=== PATIENT | female | born 1945 | race Caucasian/White ===

== ENCOUNTER → 2023-07-23 10:25 | Outpatient (REF) | payer OTHER, SELFPAY | LOC: RAD 10:25 | PROVIDERS: ATTENDING PHYSICIAN Registered Nurse | DX: M25.511 Pain in right shoulder (principal) | CPT/HCPCS: 73030 ==

== ENCOUNTER → 2023-08-15 13:42 | Outpatient (REF) | payer OTHER, SELFPAY | LOC: DHCBC HW 13:42 | PROVIDERS: ATTENDING PHYSICIAN Nurse Practitioner; FAMILY PHYSICIAN Registered Nurse | DX: I49.5 Sick sinus syndrome (principal); I48.0 Paroxysmal atrial fibrillation; Z95.0 Presence of cardiac pacemaker; I10 Essential (primary) hypertension; I73.9 Peripheral vascular disease, unspecified; E78.00 Pure hypercholesterolemia, unspecified; R06.02 Shortness of breath; R53.83 Other fatigue | CPT/HCPCS: 93306 ==

== ENCOUNTER 2023-09-12 18:59 | Emergency (ER) | payer OTHER, SELFPAY ==
[2023-09-12 19:06] VITALS: BP 171/111; BMI 28.3
[2023-09-12 19:26] LABS: Urine Albumin Negative (Neg - Trace); Urine Bilirubin 1+ (Negative); Urine Character Clear (Clear); Urine Color Yellow; Urine Glucose Negative (Negative); Urine Ketone Trace (Negative); Urine Leukocyte Negative (Negative); Urine Nitrite Negative (Negative); Urine Occult Blood Negative (Negative); Urine Urobilinogen 1+ (Neg - 1+)
[2023-09-12 19:28] LABS: % Basophils 0.3 % (0-2); % Eosinophils 0.1 % (0-6); % Immature Granulocytes 0.4 % (0-0.5); % Lymphocytes 19.8 % (20.5-51.1); % Neutrophils 71.4 % (42.2-75.2); Absolute Lymphocytes 1.5 10^3/uL (1.2-3.4); Absolute Monocytes 0.6 10^3/uL (0.1-0.6); Absolute Neutrophils 5.5 10^3/uL (1.4-6.5); Hematocrit 43.7 % (37.0-47.0); Hemoglobin 15.2 g/dL (12.0-16.0); Mean Corp Hgb Conc. 34.8 g/dL (33.0-37.0); Mean Corpuscular Hgb 32.3 pg (27.0-31.0); Mean Corpuscular Volume 92.8 fL (81.0-99.0); Mean Platelet Volume 10.9 fL (7.4-10.4); Nucleated Red Blood Cells % 0 %; Platelet Count 123 10^3/uL (130-400); Red Blood Cell Count 4.71 10^6/uL (4.20-5.40); White Blood Cell Count 7.7 10^3/uL (4.8-10.8)
[2023-09-12 19:49] LABS: ALT (SGPT) 16 U/L (0-35); AST (SGOT) 32 U/L (14-36); Albumin 4.5 g/dl (3.5-5.0); Alkaline Phosphatase 98 U/L (38-126); Blood Urea Nitrogen 15 mg/dl (7-17); Calcium 9.2 mg/dl (8.4-10.2); Carbon Dioxide 35 mmol/L (22-30); Chloride 98 mmol/L (98-107); Estimated Creatinine Clearance 64 ml/min; Glucose 115 mg/dl (70-99); Lipase 83 U/L (23-300); Potassium 4.4 mmol/L (3.5-5.1); Sodium 133 mmol/L (135-145); Total Bilirubin 0.6 mg/dl (0.2-1.3); Total Protein 7.2 g/dl (6.3-8.2); eGFR > 60.00
--- NOTE | 2023-09-12 21:17 | ED.GENMED ---
History of Present Illness
General
Chief Complaint: Abdominal Pain
Source: patient and family
Time Seen by Provider: 09/12/23 21:04
Travel History
Have you had any contact with someone who has COVID-19?: No
Do you have any symptoms of coronavirus? Fever > 100 degrees, chills, cough, shortness of breath, sore throat, loss of taste or smell, muscle aches, or headache?: No
History of Present Illness
History of Present Illness:
This patient is a 77-year-old female presents emergency department with complaints of generalized malaise, nausea, and anorexia with a 7 pound weight last over the past month. She denies fever chills, vomiting, chest pain, dyspnea, back pain. She
has a chronic cough. She denies black stool or bleeding, urinary symptoms, vaginal very discharge. Her bowel movements are normal. She does note lower abdominal pain, sometimes worse on the right side, particular after having a bowel movement.
She noted the pain earlier today although it is now resolved. Patient was seen by her primary care doctor earlier this week and referred for outpatient testing which she has not yet been able to get.
Past History
Past History
ED Past Medical History: Arrthythmia (Atrial fibrillation), Asthma, COPD, HTN, Hypercholesterolemia, Other (Ulcers) and Other (,stomach ulcers, hiatal hernia, colon polyps, frequent urination, kidney stones, arthritis, cataracts. Left femoral artery
occlusion)
ED Past Surgical History: Appendectomy, Cardiac (Pacemaker), Gynecological (Hysterectomy) and Other (Stents left leg, inguinal hernia repair)
Social History
Tobacco: Smoker
Alcohol: Occasional
Drug: None
Personal:
Living: alone
Employment: Employed
Phy Exam
Physical Exam
Physical Exam:
GENERAL: Alert , in no apparent distress
EYE: pupils equal and reactive
NECK: Supple, no significant adenopathy.
ENT: o/p clr, mmm.
CARDIAC: Regular rate and rhythm .
LUNGS: Equal breath sounds bilaterally, no acute respiratory distress, scattered wheezing noted, no rales or rhonchi, speaks in full sentences easily
ABDOMEN: Soft, diffuse abdominal tenderness, no r/g, no cvat
NEUROLOGICAL: Alert and oriented, no focal neuro deficits
SKIN: Warm and dry, skin intact.
MUSCULOSKELETAL: No edema, well perfused.
PSYCH: Normal and appropriate interaction.
Course
Orders/Labs/Results
Orders:
Orders
09/12/23 19:21
Complete Blood Count/With Diff Urgent
Comprehensive Metabolic Panel Urgent
Lipase Urgent
Urinalysis Reflex To Culture Urgent
Date Specimen was Collected: 09/12/23
Time Specimen was Collected: 19:08
09/12/23 22:30
Iohexol [Omnipaque] See Protocol PO NOW STA
09/13/23 00:55
CT Abd/pel W Iv And Oral Contr Urgent
Reason For Exam: abd pain, n
Abnormal Lab Results
09/12/23
19:21
MCH 32.3 H pg
(27.0-31.0)
Plt Count 123 L 10^3/uL
(130-400)
MPV 10.9 H fL
(7.4-10.4)
Lymphocytes % 19.8 L %
(20.5-51.1)
Sodium 133 L mmol/L
(135-145)
Carbon Dioxide 35 H mmol/L
(22-30)
Glucose 115 H mg/dl
(70-99)
Urine Ketones Trace A
(Negative)
Urine Bilirubin 1+ A
(Negative)
09/12/23 19:21
09/12/23 19:21
Vital Signs
Initial and Last Documented VS:
Initial Vital Signs
Temp Pulse Resp BP Pulse Ox
98 F 88 16 171/111 97
09/12/23 19:06 09/12/23 19:06 09/12/23 19:06 09/12/23 19:06 09/12/23 19:06
Last Documented Vital Signs
Temp Pulse Resp BP Pulse Ox
98 F 71 16 160/74 93
09/13/23 00:08 09/13/23 00:08 09/13/23 00:08 09/13/23 00:08 09/13/23 00:08
*Critical Care Note
Total Time (30-74mins, 75-104mins- exclusive of procedures): Not Applicable
Update Note
Update Note:
Patient presents to the Emergency Department with __abdominal pain, anorexia, malaise
Number and Complexity of Problems Addressed at the Encounter
� Chronic conditions affecting care:
� Acute Exacerbation and/or Progression of Chronic Illness:
� Differential Diagnosis includes: But not limited to cholelithiasis, cholecystitis, intra-abdominal carcinoma, bowel obstruction, etc. etc.
Amount and/or Complexity of Data to be Reviewed and Analyzed
� I performed an independent evaluation of and my interpretation is:
EKG:
CT:vision read...no acute process identified, nl gb, atropic R kidney, no obstruction, no ff or fa
Xrays:
Laboratory Studies:
Other:
� Review of other/old records reveals: Discharge summary noted from recent inguinal hernia repair
� Clinical information was obtained by an independent historian: Daughter who is at bedside
� Prescriptions/Medications Considered but not given:
� Further testing considered but not performed:
Risk of Complications and/or Morbidity or Mortality of Patient Management
� Social determinants of health affecting care:
� Discussion with other providers (PCP, Hospitalists, Consultants, etc):
� Escalation of care including admission/observation vs risk of discharge considered:Pt mostly concerned re:possilibilty of gb dz, overall exam/findings unremarkable for this and otherwise serious etiology and pt comfortable,
tolerated po without difficulty, etc. WIll d/c with instructions to continue outpt eval and reasons to rted.
ED Attending Note
-
Portions of this chart may have been created with voice recognition software.� Occasional wrong word or��sound alike� substitutions may have occurred due to the inherent limitations of voice recognition software.
Discharge Plan
Departure
Patient Disposition: Home (Routine Discharge)
Date of Disposition: 09/13/23
Time of Disposition: 02:26
Patient with high blood pressure during this ER visit?: Yes
Condition: Good
Discharge Problem:
Abdominal pain
Instructions: Abdominal Pain, BLOOD PRESSURE
Prescriptions:
No Action
Trelegy Ellipta 1 EACH blister with device
1 puff IH DAILY
azithromycin 250 MG tablet
250 mg PO DAILY
amlodipine 2.5 MG tablet
2.5 mg PO DAILY
aspirin 81 MG tablet,chewable
81 mg PO DAILY Qty: 30 0RF
acetaminophen [Tylenol Extra Strength] 500 MG tablet
1,500 mg PO BID
Patient Comments:
pt took 1000 mg po at 06:00 am today, 10/10/22
Xarelto 20 MG tablet
20 mg PO QPM Qty: 0 0RF
atorvastatin 80 mg Tablet
80 mg PO QPM
tramadol 50 mg Tablet
50 mg PO PRN PRN (Reason: pain)
metoprolol succinate 25 mg Tablet Extended Release 24 Hr
25 mg PO DAILY
albuterol sulfate 90 mcg/actuation Hfa Aerosol Inhaler
2 puff INHALATION PRN PRN (Reason: SOB, Wheezes)
trospium 20 mg Tablet
20 mg PO DAILY
acetaminophen [acetaminophen] 325 mg tablet
650 mg PO Q6HPRN PRN (Reason: mild pain) Qty: 14 0RF
ibuprofen 600 mg tablet
600 mg PO Q6H PRN (Reason: pain) Qty: 14 0RF
Referrals:
Daljit Mendieta CRNP [Family Provider] - Follow up in 2-3 days
Activity Restrictions/Additional Instructions:
IF YOU DEVELOP INCREASING NEW OR WORSENING PAIN, FEVER, VOMITING, BLEEDING, CHEST PAIN, SHORTNESS OF BREATH, OR OTHER WORRISOME SIGNS, PLEASE RETURN TO THE ER IMMEDIATELY.
Interventions
Interventions:
*Risk Screen - Suicide Last Done: 09/12/23 19:06
*Neglect/Abuse Screening Last Done: 09/12/23 19:06
ED- Fall Risk Assessment Last Done: 09/12/23 21:35
*ED COVID-19 Vaccine History Last Done: 09/12/23 19:06
OY-Pxvhvr-Inyrdzgxrg Assessment Last Done: 09/12/23 21:35
Discharge Date and Time
Print Language: BRUNEIAN
[2023-09-12 21:44] VITALS: BP 159/90
[2023-09-12 22:00] VITALS: BP 161/74
[2023-09-12] MEDS: OMNIPAQUE 50 ML PO (22:57)
[2023-09-12 23:00] VITALS: BP 175/85
[2023-09-13 00:08] VITALS: BP 160/74
[2023-09-13 02:49] VITALS: BP 151/75
== END 2023-09-13 02:52 | disposition home or self-care (01) ==
LOC: EMR 18:59
PROVIDERS: Emergency Medicine; EMERGENCY PHYSICIAN Emergency Medicine; FAMILY PHYSICIAN Registered Nurse
DX: R10.9 Unspecified abdominal pain (principal); I48.91 Unspecified atrial fibrillation; J44.89 Other specified chronic obstructive pulmonary disease; I10 Essential (primary) hypertension; E78.00 Pure hypercholesterolemia, unspecified; F17.200 Nicotine dependence, unspecified, uncomplicated; Z87.19 Personal history of other diseases of the digestive system; Z87.442 Personal history of urinary calculi; Z90.49 Acquired absence of other specified parts of digestive tract; Z90.710 Acquired absence of both cervix and uterus; Z95.0 Presence of cardiac pacemaker; Z95.5 Presence of coronary angioplasty implant and graft
CPT/HCPCS: 99284; 74177; 80053; 81003; 83690; 85025; Q9967

== ENCOUNTER → 2023-09-19 08:40 | Outpatient (REF) | payer OTHER, SELFPAY ==
[2023-09-19 09:59] LABS: % Basophils 0.4 % (0-2); % Eosinophils 0.4 % (0-6); % Immature Granulocytes 0.2 % (0-0.5); % Lymphocytes 22.7 % (20.5-51.1); % Neutrophils 66.3 % (42.2-75.2); Absolute Lymphocytes 1.3 10^3/uL (1.2-3.4); Absolute Monocytes 0.6 10^3/uL (0.1-0.6); Absolute Neutrophils 3.7 10^3/uL (1.4-6.5); Hematocrit 45.1 % (37.0-47.0); Hemoglobin 14.5 g/dL (12.0-16.0); Mean Corp Hgb Conc. 32.2 g/dL (33.0-37.0); Mean Corpuscular Hgb 31.3 pg (27.0-31.0); Mean Corpuscular Volume 97.2 fL (81.0-99.0); Nucleated Red Blood Cells % 0 %; Platelet Count 124 10^3/uL (130-400); Red Blood Cell Count 4.64 10^6/uL (4.20-5.40); Red Cell Dist. Width 14.3 % (11.5-14.5); White Blood Cell Count 5.6 10^3/uL (4.8-10.8)
[2023-09-19 12:44] LABS: ALT (SGPT) 14 U/L (0-35); AST (SGOT) 31 U/L (14-36); Albumin 3.9 g/dl (3.5-5.0); Alkaline Phosphatase 96 U/L (38-126); Blood Urea Nitrogen 18 mg/dl (7-17); Calcium 9.4 mg/dl (8.4-10.2); Carbon Dioxide 31 mmol/L (22-30); Chloride 101 mmol/L (98-107); Glucose 83 mg/dl (70-99); HDL Cholesterol 47 mg/dl; LDL Cholesterol, Calculated 58 mg/dl; Potassium 4.4 mmol/L (3.5-5.1); Sodium 137 mmol/L (135-145); Total Bilirubin 0.6 mg/dl (0.2-1.3); Total Cholesterol 121 mg/dl (50-199); Total Protein 6.4 g/dl (6.3-8.2); Triglyceride 84 mg/dl (10-149); Very Low Density Lipoprotein 16 mg/dl (0-30); eGFR > 60.00
[2023-09-19 13:46] LABS: Vitamin B12 261 pg/ml (239-931)
[2023-09-19 13:55] LABS: Free T4 1.13 ng/dl (0.78-2.19)
== END ==
LOC: REG 08:40
PROVIDERS: ATTENDING PHYSICIAN Registered Nurse
DX: R41.89 Other symptoms and signs involving cognitive functions and awareness (principal); I25.10 Atherosclerotic heart disease of native coronary artery without angina pectoris; I73.9 Peripheral vascular disease, unspecified; I10 Essential (primary) hypertension; J44.9 Chronic obstructive pulmonary disease, unspecified; E78.2 Mixed hyperlipidemia
CPT/HCPCS: 36415; 80053; 80061; 82607; 84439; 84443; 85025

== ENCOUNTER → 2023-11-20 09:37 | Outpatient (REF) | payer OTHER, SELFPAY ==
[2023-11-20 11:53] LABS: TSH Reflex To Free T4 1.09 uIU/ml (0.47-4.68)
== END ==
LOC: REG 09:37
PROVIDERS: ATTENDING PHYSICIAN Registered Nurse
DX: E03.9 Hypothyroidism, unspecified (principal)
CPT/HCPCS: 36415; 84443

== ENCOUNTER 2024-01-25 17:17 | Inpatient (IN) | payer OTHER, SELFPAY ==
[2024-01-25] VITALS (9 sets, daily range): BP systolic 128–174; BP diastolic 63–116; BMI 25.9; BMI 24.6
--- NOTE | 2024-01-25 12:38 | ED.GENMED ---
History of Present Illness
General
Chief Complaint: Abdominal Pain
Source: patient
Exam Limitations: none
Time Seen by Provider: 01/25/24 12:09
Nursing documentation reviewed up to this point in time: agreed with
History of Present Illness
History of Present Illness:
Patient is a 78-year-old female who presents to the ER for abdominal pain. She reports she has had this pain off and on for months. In fact some reports she was here in September for same pain. She did see her family doctor for that was scheduled for
testing but did not have testing done. She reports pain started this morning. It is the same pain as prior episodes. She reports the pain in the epigastric area does not radiate. She denies any nausea vomiting. She does not have reflux and does
not feel like reflux or GERD. She denies any urinary frequency urgency or dysuria.
She denies any chest pain shortness of breath. She has never had a colonoscopy. She does report weight loss but she is not able to tell me how much weight over how long she has lost weight. pt does smoke. no history of alcohol use .
Past History
Past History
ED Past Medical History: Arrthythmia (Atrial fibrillation), Asthma, COPD, HTN, Hypercholesterolemia, Other (Ulcers) and Other (,stomach ulcers, hiatal hernia, colon polyps, frequent urination, kidney stones, arthritis, cataracts. Left femoral artery
occlusion)
ED Past Surgical History: Appendectomy, Cardiac (Pacemaker), Gynecological (Hysterectomy) and Other (Stents left leg, inguinal hernia repair)
Social History
Tobacco: Smoker
Alcohol: Occasional
Drug: None
Personal:
Living: alone
Employment: Employed
Review of Systems
Review of Systems
Allergies reviewed?: Yes
All Other Systems: ROS reviewed and negative except as documented in HPI and ROS
Constitutional: Reports no symptoms
Respiratory: Reports no symptoms
Cardiac: Reports no symptoms
ABD/GI: Reports abdominal pain; Denies nausea, vomiting or diarrhea
: Reports no symptoms
Musculoskeletal: Reports no symptoms
Skin: Reports no symptoms
Neurological: Reports no symptoms
Psychiatric: Reports no symptoms
Phy Exam
General Physical Exam
General Presentation: no apparent distress
General age: appears stated age
General Skin: warm and dry
General Habitus: normal
General Mental: alert
General Hydration: appears well hydrated
Cardiovascular Exam
Cardiovascular Exam: regular rate/rhythm, no murmur and normal peripheral pulses
Pulmonary Exam
Pulmonary Exam: lungs clear and no respiratory distress
Gastrointestinal Exam
Gastrointestinal Exam: soft and other (epigastric tenderness )
Neurological Exam
Neurological Exam: alert and oriented x3
Musculoskeletal Exam
Musculoskeletal Exam: full ROM
Skin Exam
Skin Exam: normal color and warm/dry
Psychiatric Exam
Psychiatric Exam: normal mood/affect
Course
Orders/Labs/Results
Orders:
Orders
01/25/24 12:43
IV Insert/Care/Rem.- Treatment PRN
01/25/24 13:13
CT Angio Abd/Pelvis w/wo IV [CT Abd/pelvis Angio W/wo Iv] Urgent
Comment:
Reason For Exam: upper abd pain known aneurysm
01/25/24 13:40
Complete Blood Count/With Diff Urgent
Comprehensive Metabolic Panel Urgent
Lipase Urgent
Urinalysis Reflex To Culture Urgent
Date Specimen was Collected: 01/25/24
Time Specimen was Collected: 13:05
Abnormal Lab Results
01/25/24
13:40
MCH 32.3 H pg
(27.0-31.0)
Plt Count 114 L 10^3/uL
(130-400)
MPV 10.8 H fL
(7.4-10.4)
Monocytes % 10.0 H %
(1.7-9.3)
Chloride 97 L mmol/L
(98-107)
Carbon Dioxide 39 H mmol/L
(22-30)
Lipase 906 H U/L
(23-300)
01/25/24 13:40
01/25/24 13:40
Vital Signs
Initial and Last Documented VS:
Initial Vital Signs
Temp Pulse Resp BP Pulse Ox
97.7 F 96 16 169/116 92
01/25/24 11:08 01/25/24 11:08 01/25/24 11:08 01/25/24 11:08 01/25/24 11:08
Last Documented Vital Signs
Temp Pulse Resp BP Pulse Ox
98.2 F 91 18 143/72 87
01/25/24 13:47 01/25/24 14:30 01/25/24 14:30 01/25/24 14:00 01/25/24 15:17
MDM/Problems Addressed
Differential Diagnosis Includes:
Not limited to peptic ulcer disease, biliary colic, pancreatitis
MDM/Problems Addressed:
Patient is a 78-year-old female who presents for epigastric pain. She has had this pain off and on since September. She was seen here in the ER in September and at that time had a CAT scan which showed no acute abnormalities however there was again seen a
fusiform abdominal aortic aneurysm measuring 3.6 cm(this was 3.5 cm 6 of 2021)
She has since seen her family doctor and had additional imaging ordered but did not get this done yet including ultrasound of the abdomen.
With persistent abdominal pain and history of aneurysm CAT scan repeated. Patient is mildly tender on epigastric exam. CAT scan does show again fusiform infrarenal abdominal aortic aneurysm 3.6 cm without evidence for enlargement; severe greater
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
Labs reviewed patient's white count hemoglobin stable; normal renal function lipase however elevated 906 which is increased from previous ED visit in September . with continued pain elevated lipase will adm
Chronic conditions affecting care:
+ smoker
*Radiology
Radiology exam reviewed: radiology read reviewed
*Critical Care Note
Total Time (30-74mins, 75-104mins- exclusive of procedures): Not Applicable
Data Reviewed
Review of Other/Old Records Reveals: Radiology Studies and Other (Previous imaging previous ED record)
ED Attending Note
-
Portions of this chart may have been created with voice recognition software.� Occasional wrong word or��sound alike� substitutions may have occurred due to the inherent limitations of voice recognition software.
Discharge Plan
Departure
Patient Disposition: Admit
Date of Disposition: 01/25/24
Time of Disposition: 16:16
Admit to: Med/Surg
Admit to doctor: hospitalist
Presentation/result/management discussed w/ accepting MD/DO: Hospitalist
Patient with high blood pressure during this ER visit?: No
Condition: Fair
Covid-19: Not Applicable
Discharge Problem:
Acute epigastric pain, Elevated lipase
Prescriptions:
No Action
Trelegy Ellipta 1 EACH blister with device
1 puff IH DAILY
azithromycin 250 MG tablet
250 mg PO DAILY
amlodipine 2.5 MG tablet
2.5 mg PO DAILY
aspirin 81 MG tablet,chewable
81 mg PO DAILY Qty: 30 0RF
acetaminophen [Tylenol Extra Strength] 500 MG tablet
1,500 mg PO BID
Patient Comments:
pt took 1000 mg po at 06:00 am today, 10/10/22
Xarelto 20 MG tablet
20 mg PO QPM Qty: 0 0RF
atorvastatin 80 mg Tablet
80 mg PO QPM
tramadol 50 mg Tablet
50 mg PO PRN PRN (Reason: pain)
metoprolol succinate 25 mg Tablet Extended Release 24 Hr
25 mg PO DAILY
albuterol sulfate 90 mcg/actuation Hfa Aerosol Inhaler
2 puff INHALATION PRN PRN (Reason: SOB, Wheezes)
trospium 20 mg Tablet
20 mg PO DAILY
acetaminophen [acetaminophen] 325 mg tablet
650 mg PO Q6HPRN PRN (Reason: mild pain) Qty: 14 0RF
ibuprofen 600 mg tablet
600 mg PO Q6H PRN (Reason: pain) Qty: 14 0RF
Referrals:
Daljit Mendieta CRNP [Family Provider] -
Interventions
Interventions:
*Risk Screen - Suicide Last Done: 01/25/24 11:08
*General Assessment Last Done: 01/25/24 11:08
*Neglect/Abuse Screening Last Done: 01/25/24 11:56
ED- Fall Risk Assessment Last Done: 01/25/24 11:56
*ED COVID-19 Vaccine History Last Done: 01/25/24 11:08
JZ-Cdquyh-Uqkezvuxwr Assessment Last Done: 01/25/24 11:57
Discharge Date and Time
Print Language: ROMANSH
[2024-01-25 14:00] LABS: Urine Albumin Negative (Neg - Trace); Urine Bilirubin Negative (Negative); Urine Character Clear (Clear); Urine Color Yellow; Urine Glucose Negative (Negative); Urine Ketone Negative (Negative); Urine Leukocyte Negative (Negative); Urine Nitrite Negative (Negative); Urine Occult Blood Negative (Negative); Urine Urobilinogen Negative (Neg - 1+)
[2024-01-25 14:12] LABS: ALT (SGPT) 20 U/L (0-35); AST (SGOT) 29 U/L (14-36); Albumin 3.8 g/dl (3.5-5.0); Alkaline Phosphatase 84 U/L (38-126); Blood Urea Nitrogen 13 mg/dl (7-17); Calcium 9.3 mg/dl (8.4-10.2); Carbon Dioxide 39 mmol/L (22-30); Chloride 97 mmol/L (98-107); Estimated Creatinine Clearance 57 ml/min; Glucose 99 mg/dl (70-99); Lipase 906 U/L (23-300); Potassium 4.4 mmol/L (3.5-5.1); Sodium 139 mmol/L (135-145); Total Bilirubin 0.4 mg/dl (0.2-1.3); Total Protein 6.3 g/dl (6.3-8.2); eGFR > 60.00
[2024-01-25 14:19] LABS: % Basophils 0.3 % (0-2); % Eosinophils 0.3 % (0-6); % Immature Granulocytes 0.3 % (0-0.5); % Neutrophils 67.1 % (42.2-75.2); Absolute Lymphocytes 1.3 10^3/uL (1.2-3.4); Absolute Monocytes 0.6 10^3/uL (0.1-0.6); Hematocrit 41.9 % (37.0-47.0); Mean Corp Hgb Conc. 33.4 g/dL (33.0-37.0); Mean Corpuscular Hgb 32.3 pg (27.0-31.0); Mean Corpuscular Volume 96.8 fL (81.0-99.0); Mean Platelet Volume 10.8 fL (7.4-10.4); Nucleated Red Blood Cells % 0 %; Platelet Count 114 10^3/uL (130-400); Red Blood Cell Count 4.33 10^6/uL (4.20-5.40); Red Cell Dist. Width 12.9 % (11.5-14.5); White Blood Cell Count 5.9 10^3/uL (4.8-10.8)
--- NOTE | 2024-01-25 16:58 | HPS.HSE ---
Family Physician
-
Family Physician: PHUONG Olivo
Chief Complaint
-
abdominal pain flare
History of Present Illness
78F Current smoker HX Est ASCVD ( PAD with LLEx srents, stable 3.6 cm infrarenal abdominal aortic aneurysm, HLD, HTN, chr pain syndrome, gastric ulcer seen at ER for abdominal pain.
- intermittent pain for months of chrnicity
- PCP request abdominal imaging plus US abdomen but did not get this done yet
- presented to ER with same pain at epigastrium. No radiation
- denied N/V
- Not similar to reflux pain
- denied urinary frequency urgency or dysuria.
- denies any chest pain shortness of breath.
- uncertain about any wt loss
- Denied ETOH use disorder
Medical History
Past Medical History
Past Medical History: Reports Arrhythmia (AFib on Xarelto ), COPD, GERD, HTN and Hypercholesterolemia; Denies NIDDM
Additional Past Medical History:
HX Est ASCVD ( PAD with LLEx stents, stable 3.6 cm infrarenal abdominal aortic aneurysm, HLD, HTN, chr pain syndrome, gastric ulcer, bradycardia , syncope, PPM implant,Left femoral artery occlusion)
Past Surgical History: Reports Appendectomy, Cardiac (PPM ) and Gynocological (hysterectomy, Stents left leg, inguinal hernia repair))
Social History
Tobacco: Smoker
Alcohol: Occasional
Drug: None
Personal:
Living: Alone
Family History
Family History: Not pertinent
Allergies / Home Medications
Allergies reflects when Allergies were last updated in [facility].
Home Medications with original date entered in [facility]
Allergy/Medication List:
Allergies
Allergy/AdvReac Type Severity Reaction Status Date / Time
simvastatin Allergy Rash Verified 01/25/24 11:13
warfarin [From Coumadin] Allergy Unknown Verified 01/25/24 11:13
Home Medications
amlodipine 2.5 mg tablet 5 mg PO DAILY 01/05/19
azithromycin 250 mg tablet 250 mg PO DAILY 01/05/19
acetaminophen 500 mg tablet (Tylenol Extra Strength) 1,500 mg PO BID 04/17/20
rivaroxaban 20 mg tablet (Xarelto) 20 mg PO QPM ##0 04/17/20
albuterol sulfate 90 mcg/actuation aerosol inhaler 2 puff inhalation R Q6HPRN PRN SOB, Wheezes 09/23/22
atorvastatin 80 mg tablet 80 mg PO QPM 09/23/22
metoprolol succinate 25 mg tablet,extended release 24 hr 25 mg PO DAILY 09/23/22
tramadol 50 mg tablet 50 mg PO BIDPRN PRN moderate pain 09/23/22
fluticasone fur. 100 mcg-umeclid 62.5 mcg-vilant 25 mcg inhalat.powder (Trelegy Ellipta) 1 inh inhalation R DAILY 01/25/24
levothyroxine 75 mcg tablet (Synthroid) 75 mcg PO DAILY 01/25/24
Review of Systems
-
Constitutional: Reports No Symptoms
EENT: Reports No Symptoms
Respiratory: Reports No Symptoms
Cardiac: Reports No Symptoms
Abdomen/GI: Reports See HPI
: Reports No Symptoms
Musculoskeletal: Reports No Symptoms
Skin: Reports No Symptoms
Neurological: Reports No Symptoms
Endocrine: Reports No Symptoms
Hematologic/Lymphatic: Reports No Symptoms
Psych: Reports No Symptoms
Physical Exam
Vital Signs
Vital Signs
Temp Pulse Resp BP Pulse Ox
98.2 F 100 24 143/72 97
01/25/24 16:22 01/25/24 16:00 01/25/24 16:00 01/25/24 14:00 01/25/24 16:22
Physical Exam
General: Well Developed, Well Nourished and No Apparent Distress
HEENT: NormoCephalic, Moist mucous membranes and Atraumatic
Respiratory: Clear
Cardiac: S1/S2 and Regular Rhythm; No Murmur or Rub
GI: Soft, Non Tender, Non Distended and Normal Bowel Sounds; No Organomegaly
Rectal: Deferred by Provider
Musculoskeletal: No Clubbing, No Cyanosis and No Edema
Skin: No Rash
Neuro: Nonfocal/grossly intact
Laboratory Results
-
01/25/24 13:40
01/25/24 13:40
Laboratory Results
Total Bilirubin 0.4 mg/dl (0.2-1.3) 01/25/24 13:40
AST 29 U/L (14-36) 01/25/24 13:40
ALT 20 U/L (0-35) 01/25/24 13:40
Alkaline Phosphatase 84 U/L (38-126) 01/25/24 13:40
Lipase 906 U/L (23-300) H 01/25/24 13:40
Data Reviewed
-
Diagnostic Radiology: Report Reviewed by me
Lab Data: Labs Reviewed by me
Old Records: Reviewed
Impression/Plan
-
Vital Signs
Temp Pulse Resp BP Pulse Ox
98.2 F 100 24 143/72 97
01/25/24 16:22 01/25/24 16:00 01/25/24 16:00 01/25/24 14:00 01/25/24 16:22
Laboratory Tests
09/19/23 01/25/24
09:11 13:40
WBC 5.9
Hgb 14.0
Plt Count 124 L 114 L
Chloride 97 L
Carbon Dioxide 39 H
BUN 13
Creatinine 0.7
eGFR > 60.00
Lipase [address]/pelvis Angio W/wo Iv
1. Fusiform infrarenal abdominal aortic aneurysm (3.6 cm AP dimension) without evidence for interval enlargement since 09/13/2023.
2. 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
3. 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
4. Moderate to severe right renal atrophy with suggestion of chronic ischemia.
5. Severe diverticulosis in the sigmoid colon.
6. Severe pelvic floor dysfunction with a rectocele.
7. Small hiatal hernia.
8. Previous AARON-BSO and appendectomy.
9. Severe multilevel discogenic degenerative disease in the lumbar spine.
08/15/23 ECHO
LVEF 55-60%.
Aortic sclerosis without stenosis.
No significant change since the prior study of 2019.
Last hospitalist admission:
DATE OF ADMISSION: 01/05/2019 - DATE OF DISCHARGE: 01/06/2019
1. Paroxysmal atrial fibrillation, started on Xarelto on this admission.
2. Abdominal aortic aneurysm. Continue outpatient monitoring.
ASSESSMENT & PLAN
Acute on chr intermittent abdominal pain of uncertain etiology
DDX:
- concerning for abdominal angina / chr ischemic bowel ?
- unlikely pain is from Fusiform infrarenal AAA (3.6 cm AP dimension) NO evidence for interval enlargement since 09/13/2023.
- Elevated lipase but no clear evidience of acute pancreatitis
- HX
- Clear diet and ADAT
- IV NS
- PRN Narcotic analgesia
- check Lactate , trend lipase
- Consult: GI , vascular
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
Fusiform infrarenal AAA (3.6 cm AP dimension
Known HX PAD with Samuel stent
Current smoker
HLD
- cont Statin
Hypercholesterolemia.-
- on Lipitor 80mg daily
Essential HTN
- cont. Amlodipine and Metoprolol succinate
HX Prx AF
- on Xarelto and Metoprolol succinate
HX Pacemaker secondary to bradycardia/syncope
HX COPD.
- cont TECHNICAL SUPPORT INTERN Zithromax 250 mg daily for chronic maintenance.
Nicotine abuse.
- Smoking cessation was advised
Chr condition:
HX Asthma, p.r.n. DuoNeb.
HX Gastric ulcers, p.o. Protonix 40 mg daily.
Hiatal hernia history.
Colon polyp history.
Renal calculi history with a removal of calculi in 2001.
DVT Px: Xarelto
DNR per patient in the presence of family at bed side
IP TLM
[2024-01-25 17:30] LABS: Lactic Acid 0.6 mmol/L (0.7-2.0)
[2024-01-25] MEDS: NSS 1000 IV (18:19)
[2024-01-25] MEDS: NORVASC 5 MG PO (18:42)
[2024-01-25] MEDS: LIPITOR 80 MG PO (18:42)
[2024-01-25] MEDS: XARELTO 20 MG PO (18:42)
--- NOTE | 2024-01-25 18:47 | PTCARENOTE ---
pt admitted to [facility] rm [id number] at 1815. pt assisted to bed, gait steady. admission database completed, telemetry placed and reading ST 90's, BP 178/110 rechecked manual BP 160/90. Dr Garcia notified and new orders noted. pt oriented to room, call
susanna, plan of care with verbalized understanding. family at bedside.
[2024-01-25] MEDS: SYMBICORT 80/4.5 MCG INHALER 2 PUFF INH (20:06)
[2024-01-25] MEDS: TYLENOL 1000 MG PO (21:39)
[2024-01-26] VITALS (8 sets, daily range): BP systolic 20–152; BP diastolic 56–88; BMI 24.8
[2024-01-26] MEDS: SYNTHROID 75 MCG PO (05:02)
[2024-01-26] MEDS: NSS 1000 IV (06:18)
[2024-01-26 06:58] LABS: Hematocrit 36.3 % (37.0-47.0); Mean Corp Hgb Conc. 33.1 g/dL (33.0-37.0); Mean Corpuscular Hgb 31.1 pg (27.0-31.0); Mean Platelet Volume 11.2 fL (7.4-10.4); Platelet Count 105 10^3/uL (130-400); Red Blood Cell Count 3.86 10^6/uL (4.20-5.40); Red Cell Dist. Width 13.2 % (11.5-14.5); White Blood Cell Count 5.3 10^3/uL (4.8-10.8)
--- NOTE | 2024-01-26 07:00 | CON.GI ---
Addendum entered and electronically signed by Rene Berry DO 01/26/24 09:08:
I saw and examined the patient.
The INTAKE ASSESSOR's note was reviewed and I agree with the note.
Comment: Ms Sharma is a 78 y.o female with an extensive past medical history including HTN, HLD, A Fib (on xarelto), COPD, significant PAD (prior stents with prior femoral artery occlusion), tobacco use and reported gastric ulcers (? - details
unclear regarding this) who presented to the ED with epigastric pain over the past six months. Reports intermittent, dull but fairly constant epigastric pain without any relation to meals and/or fasting over the past several months. Waxes and wanes
without any provoking factors or other significant GI symptoms- no dysphagia/odynophagia, heartburn/reflux, globus, nausea/vomiting, radiating symptoms, changes in bowel habits, constipation/diarrhea or bloody stools. Does endorse significant
unintentional weight loss of about 30 pounds since last year. Denies poor p.o intake. Otherwise, no NSAIDs or significant alcohol use. She has never had a prior EGD or colonoscopy. Prior CT Abd/pelvis 09/2023 for abdominal pain was also unremarkable
at that time. Labs grossly unrevealing except for profoundly elevate lipase 900s with normal LFTs. Etiology suspicious for possible PUD (given reported hx of gastric ulcers on prior imaging ?- although I see no records of this) versus pancreatic
process given elevated lipase 900s however CT reportedly normal appearing pancreas. Has multiple risk factors for chronic mesenteric ischemia given her ongoing smoking and significant atherosclerotic disease of her vasculature see on CT, however her
symptomatology argues against. Given her epigastric pain and significant weight loss she would benefit from EGD this admission along with Abdominal US to better visualize her GB and pancreas given her significantly elevated lipase but does not meet
criteria for pancreatitis.
Recommendations:
- Keep NPO pending procedure
- Empiric IV PPI 40 mg BiD
- Plan for EGD today, 01/26/2024, for further evaluation of pain and weight loss
- Start Miralax 17 gm BiD and senna qhs if constipation contributing
- Check Abdominal US for completion given elevated lipase and unremarkable CT. Will consider MRI/MRCP WWO contrast this admission pending results of US
- Would benefit from an eventual colonoscopy as well given her profound weight loss, however less likely to be causing abdominal pain. Will consider inpatient versus outpatient colonoscopy
- Hold Xarelto (last dose on 01/24/2024)
- Avoidance of all NSAIDs
- Rest of care as per primary team
Thank you for allowing me to participate in the care of this patient. Please do not hesitate to call for any further questions. GI team will continue to follow while inpatient.
Original Note:
Consultation
-
Date/Time Consultation Requested: 01/25/24 181
Date/Time Consultation Performed: 01/26/24 0800
Requesting Provider: Yoni Garcia MD
Performing Provider: PHUONG Mejia, Rene Berry MD
Reason for Consultation: abdominal pain
Medical History
Chief Complaint / HPI
History of Present Illness:
Pt is a 78yo with hx COPD, PAD with prior LE stents with prior femoral artery occlusion, afib on Xarelto, tobacco abuse, AAA, HTN, hyperlipidemia, gastric ulcers, pacer, chronic pain with onset of abdominal pain. Pt reports pain on and off for
months. After admission noted with stable hbg 14, platelets 114, normal LFT's but lipase 906. CTA on admission with stable AAA 3.6 cm, severe stenosis of both renal arteries, chronic iliac art occlusion, renal atrophy with chronic ischemia,
diverticulosis, pelvic floor disfunction with rectoceles, small HH, AARON, BSO and DDD and pancreas appears normal.
In reviewing with patient noted with abdominal pain for a few months. Pain with come and go without pattern. She has had wt loss per chart about 30 lbs since 2022. She denies dysphagia, GERD, nausea, vomiting, diarrhea, constipation or
rectal bleeding. No hx EGD or colonoscopy in past. Denies NSAID use.
Past Medical History
Past Medical History: Arrhythmias (afib on Xarelto), COPD, GERD, HTN, Hypercholesterolemia and Other (PAD wtih LLe stent, 3.6 cm infrarenal AAA, chronic pain, gastric ulcer, bradycardia, fem artery occlusion, tobacco abuse, gastric ulcer )
Past Surgical History: Appendectomy, Cardiac (pacer) and Gynecological (hysterectomy, LE stent , inguinal hernia repair)
Social History
Tobacco: Smoker
Alcohol: Occasional
Drug: None
Personal:
Living: With Family
Employment: Retired
Family History
Family History: Reviewed & Not Pertinent
Allergies / Home Medications
Allergy/AdvReac Type Severity Reaction Status Date / Time
simvastatin Allergy Rash Verified 01/25/24 11:13
warfarin [From Coumadin] Allergy Unknown Verified 01/25/24 11:13
�Medication �Instructions �Recorded
amlodipine 2.5 mg tablet 5 mg PO DAILY 01/05/19
azithromycin 250 mg tablet 250 mg PO DAILY 01/05/19
acetaminophen 500 mg tablet 1,500 mg PO BID 04/17/20
(Tylenol Extra Strength)
rivaroxaban 20 mg tablet (Xarelto) 20 mg PO QPM ##0 04/17/20
albuterol sulfate 90 mcg/actuation 2 puff inhalation R Q6HPRN PRN 09/23/22
aerosol inhaler SOB, Wheezes
atorvastatin 80 mg tablet 80 mg PO QPM 09/23/22
metoprolol succinate 25 mg 25 mg PO DAILY 09/23/22
tablet,extended release 24 hr
tramadol 50 mg tablet 50 mg PO BIDPRN PRN moderate pain 09/23/22
fluticasone fur. 100 mcg-umeclid 1 inh inhalation R DAILY 01/25/24
62.5 mcg-vilant 25 mcg
inhalat.powder (Trelegy Ellipta)
levothyroxine 75 mcg tablet 75 mcg PO DAILY 01/25/24
(Synthroid)
Review of Systems
-
History Source: Patient
Constitutional: Reports Weight Loss
EENT: Reports No Symptoms
Respiratory: Reports Trouble Breathing (chronic with COPD)
Cardiac: Reports No Symptoms
Abdomen/GI: Reports Abdominal Pain
: Reports No Symptoms
Musculoskeletal: Reports Joint Pain
Skin: Reports No Symptoms
Endocrine: Reports No Symptoms
Hematologic/Lymphatic: Reports No Symptoms
Vital Signs
Temp Pulse Resp BP Pulse Ox
97.6 F 89 16 152/88 94
01/26/24 03:00 01/26/24 03:00 01/26/24 03:00 01/26/24 03:00 01/26/24 03:00
Physical Exam
Exam
General: Well Developed, Well Nourished and No Apparent Distress
HEENT: Normocephalic and Anicteric
Respiratory: Wheezes (slight chronic)
Cardiac: Regular Rhythm
GI: Soft, Non Distended and Tender (epigastric pain)
Musculoskeletal: No Clubbing and No Cyanosis
Skin: Warm and Dry
Neuro: Awake, Alert and AO x 3
Psych: Calm
Results
WBC 5.3 10^3/uL (4.8-10.8) 01/26/24 04:30
Hgb 12.0 g/dL (12.0-16.0) 01/26/24 04:30
Hct 36.3 % (37.0-47.0) L 01/26/24 04:30
MCV 94.0 fL (81.0-99.0) 01/26/24 04:30
Plt Count 105 10^3/uL (130-400) L 01/26/24 04:30
Absolute Neuts (auto) 4.0 10^3/uL (1.4-6.5) 01/25/24 13:40
Sodium 139 mmol/L (135-145) 01/25/24 13:40
Potassium 4.4 mmol/L (3.5-5.1) 01/25/24 13:40
Chloride 97 mmol/L (98-107) L 01/25/24 13:40
Carbon Dioxide 39 mmol/L (22-30) H 01/25/24 13:40
BUN 13 mg/dl (7-17) 01/25/24 13:40
Creatinine 0.7 mg/dL (0.6-1.0) 01/25/24 13:40
Calcium 9.3 mg/dl (8.4-10.2) 01/25/24 13:40
Total Bilirubin 0.4 mg/dl (0.2-1.3) 01/25/24 13:40
AST 29 U/L (14-36) 01/25/24 13:40
ALT 20 U/L (0-35) 01/25/24 13:40
Alkaline Phosphatase 84 U/L (38-126) 01/25/24 13:40
Lipase 906 U/L (23-300) H 01/25/24 13:40
Diagnostic Image Results:
01/25/24 CT Abd/pelvis Angio W/wo Iv
1. Fusiform infrarenal abdominal aortic aneurysm (3.6 cm AP dimension) without evidence for interval enlargement since 09/13/2023.
2. 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
3. 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
4. Moderate to severe right renal atrophy with suggestion of chronic ischemia.
5. Severe diverticulosis in the sigmoid colon.
6. Severe pelvic floor dysfunction with a rectocele.
7. Small hiatal hernia.
8. Previous AARON-BSO and appendectomy.
9. Severe multilevel discogenic degenerative disease in the lumbar spine.
09/13/23 CT A/p with Iv And Oral Contr
1. No acute abnormalities identified to explain the patient's symptoms.
2. No evidence of intestinal obstruction, bowel inflammatory process, nephrolithiasis, hydronephrosis, cholecystitis, or abscess formation.
3. Mild colonic diverticulosis without evidence of diverticulitis. No evidence of bowel inflammatory process.
4. Fusiform abdominal aortic aneurysm, measuring 3.6 cm in orthogonal dimension, compared to 3.[address] dated 11/02/2021. Abdominal aorta measured 2.5 cm in diameter on distant prior study dated 10/20/2012. Continued imaging surveillance is
recommended.
Prior GI Procedures:
EGD:none
Colonoscopy: none
Assessment / Plan
-
Pt is a 78yo with hx COPD, PAD with prior LE stents with prior femoral artery occlusion, afib on Xarelto, tobacco abuse, AAA, HTN, hyperlipidemia, gastric ulcers, pacer, chronic pain with onset of abdominal pain. Pt reports pain on and off for
months. After admission noted with stable hbg 14, platelets 114, normal LFT's but lipase 906. CTA on admission with stable AAA 3.6 cm, severe stenosis of both renal arteries, chronic iliac art occlusion, renal atrophy with chronic ischemia,
diverticulosis, pelvic floor disfunction with rectoceles, small HH, AARON, BSO and DDD an pancreas appears normal.
-epigastric abdominal pain
-elevated lipase
-wt loss
CT with renal artery stenosis and chronic iliac art occlusion
other medical problems:
-COPD
-PAD with prior LE stents/prior femoral artery occlusion
-afib on Xarelto
-tobacco abuse
-HTN
-hyperlipidemia
-gastric ulcers
-bradycardia/pacer
-chronic pain
-diverticulosis
-CT with pelvic floor dysfunction and recto alisha
-HH
PLAN:
etiology of epigastric pain with elevated lipase related to PUD though denies NSAID use, pancreatic process with elevated lipase, ischemic process with hx PAD and continued tobacco abuse vs other
plan for EGD today
check US with elevated lipase and consider MRI if negative with wt loss
NPO
add PPI daily
will follow
-
-
Thank you for consultation and allowing me to participate in the patient's care. Please call the talent acquisition consultant GI physician during the after hours with any questions or concerns.
[2024-01-26 07:29] LABS: ALT (SGPT) 15 U/L (0-35); AST (SGOT) 25 U/L (14-36); Albumin 3.4 g/dl (3.5-5.0); Alkaline Phosphatase 71 U/L (38-126); Blood Urea Nitrogen 12 mg/dl (7-17); Calcium 8.7 mg/dl (8.4-10.2); Carbon Dioxide 36 mmol/L (22-30); Chloride 100 mmol/L (98-107); Estimated Creatinine Clearance 67 ml/min; Glucose 74 mg/dl (70-99); Lipase 282 U/L (23-300); Potassium 3.8 mmol/L (3.5-5.1); Sodium 138 mmol/L (135-145); Total Bilirubin 0.5 mg/dl (0.2-1.3); Total Protein 5.5 g/dl (6.3-8.2); eGFR > 60.00
[2024-01-26] MEDS: SYMBICORT 80/4.5 MCG INHALER 2 PUFF INH ×2 (08:07→21:11)
[2024-01-26] MEDS: SPIRIVA RESPIMAT 2.5 MCG 2 PUFF INH (08:07)
--- NOTE | 2024-01-26 09:06 | CON.VAS ---
Documented by User: PHUONG Mejia 01/26/24 09:25
Consultation
Consultation Request
Date/Time Consultation Performed: 01/26/2024 1000
Requesting Provider: Hospitalist
Performing Provider: Sana Alex, JUAN CARLOS-C for Darrell Fitch MD
Reason for Consultation: Abdominal pain
Medical History
Past Medical History
Past Medical History: HTN and Other (Hyperlipidemia, chronic pain syndrome, gastric ulcer, bradycardia, syncope, 3.6 cm infrarenal abdominal aortic aneurysm,)
Past Surgical History: Appendectomy, Cardiac (PPM implant), Gynecological (hysterectomy) and Other (Left SFA and popliteal artery angioplasty and stent, left angioplasty of posterior tibial artery 12/28, inguinal hernia repair)
Social History
Tobacco: Smoker
Alcohol: Occasional
Personal:
Living: Alone
Allergies / Home Medications
Allergy/AdvReac Type Severity Reaction Status Date / Time
simvastatin Allergy Rash Verified 01/25/24 11:13
warfarin [From Coumadin] Allergy Unknown Verified 01/25/24 11:13
�Medication �Instructions �Recorded �Confirmed �Type
amlodipine 2.5 mg tablet 5 mg PO DAILY Blood Pressure 01/05/19 01/25/24 History
azithromycin 250 mg tablet 250 mg PO DAILY Infection 01/05/19 01/25/24 History
acetaminophen 500 mg tablet 1,500 mg PO BID Pain 04/17/20 01/25/24 History
(Tylenol Extra Strength)
rivaroxaban 20 mg tablet (Xarelto) 20 mg PO QPM ##0 04/17/20 01/25/24 Rx
albuterol sulfate 90 mcg/actuation 2 puff inhalation R Q6HPRN PRN 09/23/22 01/25/24 History
aerosol inhaler SOB, Wheezes
atorvastatin 80 mg tablet 80 mg PO QPM High Cholesterol 09/23/22 01/25/24 History
metoprolol succinate 25 mg 25 mg PO DAILY Heart 09/23/22 01/25/24 History
tablet,extended release 24 hr Disease/Condition
tramadol 50 mg tablet 50 mg PO BIDPRN PRN moderate pain 09/23/22 01/25/24 History
fluticasone fur. 100 mcg-umeclid 1 inh inhalation R DAILY 01/25/24 01/25/24 History
62.5 mcg-vilant 25 mcg Lung/Breathing Issues
inhalat.powder (Trelegy Ellipta)
levothyroxine 75 mcg tablet 75 mcg PO DAILY Thyroid 01/25/24 01/25/24 History
(Synthroid)
Physical Exam
Vital Signs
Temp Pulse Resp BP Pulse Ox
97.8 F 92 16 140/75 97
01/26/24 07:43 01/26/24 08:11 01/26/24 08:11 01/26/24 07:43 01/26/24 08:11
Lab Results
01/26/24 04:30
01/26/24 04:30

Documented by User: PHUONG Knowles 01/26/24 10:48
Medical History
-
Chief Complaint: Epigastric pain for 6 months
History of Present Illness:
78-year-old female with multiple medical conditions see below. Known to our service from a few years ago Dr. Redding performed acute left lower extremity peripheral arterial intervention due to embolic/thrombotic complication in the left SFA.
Patient notes no symptoms in her legs currently, but she has 6 months of epigastric abdominal pain. She notes its constant pain at the worst 5 out of 10. It is not influenced by meals. It is not worsened or better when eating. She has no issues
with eating. She is able to eat. No postprandial symptoms. She notes she has lost some weight but not related to postprandial pain. On exam/she is awake and alert. Head is normocephalic and atraumatic. Eyes are anicteric. 2+ left upper
extremity brachial and radial pulse. Abdomen is soft, nondistended, nontender. Lower extremity with 2+ femoral pulses palpable bilaterally. On the right side 2+ DP and PT palpable, left side with 1+ DP and PT palpable. Feet are both warm. No
rubor, no ulcerations.
CT scan images reviewed. Small abdominal aortic aneurysm 3.6 cm. In addition, severe atherosclerosis throughout the aorta and branch vessels. The celiac and SMA appear generally patent with some plaque around the origin but no severe stenosis
that I can definitively say. (Sagittal image series 503, image 46 appears to demonstrate relatively patent SMA with no obvious stenosis).
Social History
Tobacco: Smoker (1 pack/day)
Review of Systems
-
History Source: Patient
All other systems: Negative unless noted
Constitutional: Reports Weight Loss
EENT: Reports No Symptoms
Respiratory: Reports No Symptoms
Cardiac: Reports No Symptoms
Vascular: Denies Leg Pain / Claudication
Abdomen/GI: Reports Pain
: Reports No Symptoms
Musculoskeletal: Reports No Symptoms
Skin: Reports No Symptoms
Neurological: Reports No Symptoms
Physical Exam
Physical Exam
General: No Apparent Distress
HEENT: Normocephalic and Atraumatic
Respiratory: Non Labored Respirations
Cardiac: Other (+2 palpable brachial and radial pulses on the left); Negative JVD
Breast: Deferred by me
GI: Soft, Non Tender and Non Distended
Musculoskeletal: No Clubbing, No Cyanosis and No Edema
Skin: Warm
Neuro: Awake, Alert and Oriented
Psych: Calm
Pulses: Bilateral Femoral: +2, Left Dorsalis Pedis: +1, Right Dorsalis Pedis: +2, Left Posterior Tibial: +1 and Right Posterior Tibial: +2
Assessment / Plan
-
Plan/ Chronic epigastric pain. I do not think her symptoms are chronic mesenteric ischemia based on her presentation and the lack of postprandial pain. In addition imaging demonstrates patency of her mesenteric vessels. Discussed with her
recommend full GI workup for other etiologies. If all else is negative, could consider angiography via left brachial approach and attempting to stent the SMA to see if it would improve at all. However discussed with her I am not convinced that
this would be of benefit. She regardless should follow-up with us in the office regarding her overall atherosclerotic burden and peripheral arterial disease, and small aneurysm. I will see her in the office in scheduled follow-up.
Data Reviewed
-
CT Scan: Discussed with Physician
Labs: Labs Reviewed by me
--- NOTE | 2024-01-26 09:21 | W.PN.HOSP.TC ---
Addendum entered and electronically signed by Higinio Mix MD 01/26/24 16:02:
seen and examined by me independently in collaboration with the medical or surgical instrument maker Kedar.
Lab data and imaging data reviewed.
Addendum as below :
Patient presents with ongoing abdominal pain but not postprandial per se. Tenderness with elevated lipase. CT imaging raises concern about gastric wall thickening but pancreas is okay. Gallbladder is okay. LFTs are normal. She had endoscopy
which showed focal gastritis but no other pathology. She feels improved GI without nausea vomiting. Denies alcoholism.
Discussed with GI-recommends clear liquid diet and a PPI. following ultrasound of the biliary tract. There may be consideration for MRI of the abdomen depending on her symptomatology.
Vascular input noted regarding symptom-felt less likely mesenteric ischemia. Based on the CT abdomen with contrast vessel were patent. She is also on anticoagulation.
Explained to the patient the single most probably the top risk factor for including PAD, aneurysm and COPD is smoking and advised strongly to quit smoking.
Original Note:
Documented by User: Mo Lira DO, Resident 01/26/24 15:02
Today's Communication/Plan
-
Upper endoscopy EGD
GI evaluation
Vascular evaluation
Assessment / Plan
Assessment / Plan
Assessment:
70-year-old female past medical history ASCVD, PAD with stents and AAA presents for intermittent abdominal pain of the epigastrium.
Plan:
#Acute on chronic intermittent abdominal pain
Lipase elevated to 900 on admission, with associated epigastric pain
Etiology unknown potentially pancreatitis or abdominal angina/chronic bowel ischemia
Patient has fusiform infrarenal AAA, no evidence of interval enlargement since 09/13/2023
Patient n.p.o. after midnight
Upper endoscopy planned for today
IV normal saline
GI following
Vascular consult
#Renal artery stenosis
Chronic occlusion of right external iliac
He is a former infrarenal AAA�3.6 cm
Known history PAD with stents
Current smoker
Hyperlipidemia
Continue statin
#Hypercholesterolemia
Continue home statin Lipitor
#Essential hypertension
Continue home blood pressure meds, amlodipine and metoprolol
#History of paroxysmal atrial fibrillation
Continue Xarelto and metoprolol
#COPD
stable
requiring 02
Continue chronic Zithromax daily for chronic maintenance
#Nicotine abuse
Smoking cessation discussed with patient
Recommended patient follow-up with primary care physician
DVT: Xarelto
CODE STATUS and DNR
Diet: N.p.o.
Data:
CT Abd/pelvis Angio W/wo Iv
1. Fusiform infrarenal abdominal aortic aneurysm (3.6 cm AP dimension) without evidence for interval enlargement since 09/13/2023.
2. 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
3. 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
4. Moderate to severe right renal atrophy with suggestion of chronic ischemia.
5. Severe diverticulosis in the sigmoid colon.
6. Severe pelvic floor dysfunction with a rectocele.
7. Small hiatal hernia.
8. Previous AARON-BSO and appendectomy.
9. Severe multilevel discogenic degenerative disease in the lumbar spine.
08/15/23 ECHO
LVEF 55-60%.
Aortic sclerosis without stenosis.
No significant change since the prior study of 2019.
Anticipated Discharge: 24 - 48 hours
Subjective/Interval History
-
Date of Service: January 26, 2024
Patient still experiencing intermittent epigastric pain
Patient n.p.o. after midnight, plan to get upper EGD today, holding Xarelto
Objective Data
-
Labs:
Laboratory Results
01/26/24
04:30
WBC 5.3
Hgb 12.0
Hct 36.3 L
Plt Count 105 L
Sodium 138
Potassium 3.8
Chloride 100
Carbon Dioxide 36 H
BUN 12
Creatinine 0.6
Glucose 74
Calcium 8.7
Total Bilirubin 0.5
AST 25
ALT 15
Alkaline Phosphatase 71
Vital Signs:
Vital Signs
Temp Pulse Resp BP Pulse Ox
97.8 F 92 16 140/75 97
01/26/24 07:43 01/26/24 08:11 01/26/24 08:11 01/26/24 07:43 01/26/24 08:11
I&O
01/25/24 01/26/24 01/27/24
06:59 06:59 06:59
Intake Total 1440 / 1440
Balance 1440 / 1440
Review of Systems
-
History Source: Patient
Constitutional: Reports No Symptoms
Respiratory: Reports No Symptoms
Cardiac: Reports No Symptoms
Abdomen/GI: Reports Abdominal Pain; Denies Nausea, Vomiting, Diarrhea or Constipated
Physical Exam
-
General: Well Developed, Well Nourished, No Apparent Distress and Comfortable
Respiratory: Clear to Auscultation
Cardiac: Regular Rhythm and S1/S2
GI: Soft, Nontender, Nondistended and Normal Bowel Sounds
Skin: Warm and Dry
Neuro: Awake, Alert, Oriented and AO x 3
Psych: Calm and Intact Judgement/Insight
Data Reviewed
-
Labs: Labs Reviewed by me and Discussed with Physician

Documented by User: Andrea De Leon MD, Resident 01/26/24 11:42
Assessment / Plan
Assessment / Plan
Assessment:
70-year-old female past medical history ASCVD, PAD with stents and AAA presents for intermittent abdominal pain of the epigastrium.
Plan:
#Acute on chronic intermittent abdominal pain
Lipase elevated to 900 on admission, with associated epigastric pain
Etiology unknown potentially pancreatitis or abdominal angina/chronic bowel ischemia
Patient has fusiform infrarenal AAA, no evidence of interval enlargement since 09/13/2023
Patient n.p.o. after midnight
Upper endoscopy planned for today
IV normal saline
GI following
Vascular consult
#Renal artery stenosis
Chronic occlusion of right external iliac
He is a former infrarenal AAA�3.6 cm
Known history PAD with stents
Current smoker
Hyperlipidemia
Continue statin
#Hypercholesterolemia
Continue home statin Lipitor
#Essential hypertension
Continue home blood pressure meds, amlodipine and metoprolol
#History of paroxysmal atrial fibrillation
Continue Xarelto and metoprolol
#COPD
stable
requiring 02
Continue chronic Zithromax to 250 mg daily for chronic maintenance
#Nicotine abuse
Smoking cessation discussed with patient
DVT: Xarelto
CODE STATUS and DNR
Diet: N.p.o.
Data:
CT Abd/pelvis Angio W/wo Iv
1. Fusiform infrarenal abdominal aortic aneurysm (3.6 cm AP dimension) without evidence for interval enlargement since 09/13/2023.
2. 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
3. 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
4. Moderate to severe right renal atrophy with suggestion of chronic ischemia.
5. Severe diverticulosis in the sigmoid colon.
6. Severe pelvic floor dysfunction with a rectocele.
7. Small hiatal hernia.
8. Previous AARON-BSO and appendectomy.
9. Severe multilevel discogenic degenerative disease in the lumbar spine.
08/15/23 ECHO
LVEF 55-60%.
Aortic sclerosis without stenosis.
No significant change since the prior study of 2019.
--- NOTE | 2024-01-26 10:28 | W.PN.UPDATE ---
Update Note
Progress Note Update
Seen and evaluated with JUAN CARLOS Box. Full consultation to follow. Briefly 78-year-old female with multiple medical history. Known to our service from a few years ago Dr. Redding performed acute left lower extremity peripheral arterial
intervention due to embolic/thrombotic complication in the left SFA. Patient notes no symptoms in her legs currently, but she has 6 months of epigastric abdominal pain. She notes its constant pain at the worst 5 out of 10. It is not influenced by
meals. It is not worsened or better when eating. She has no issues with eating. She is able to eat. No postprandial symptoms. She notes she has lost some weight but not related to postprandial pain. On exam/she is awake and alert. Head is
normocephalic and atraumatic. Eyes are anicteric. 2+ left upper extremity brachial and radial pulse. Abdomen is soft, nondistended, nontender. Lower extremity with 2+ femoral pulses palpable bilaterally. On the right side 2+ DP and PT palpable,
left side with 1+ DP and PT palpable. Feet are both warm. No rubor, no ulcerations.
CT scan images reviewed. Small abdominal aortic aneurysm 3.6 cm. In addition, severe atherosclerosis throughout the aorta and branch vessels. The celiac and SMA appear generally patent with some plaque around the origin but no severe stenosis
that I can definitively say. (Sagittal image series 503, image 46 appears to demonstrate relatively patent SMA with no obvious stenosis).
Plan/ Chronic epigastric pain. I do not think her symptoms are chronic mesenteric ischemia based on her presentation and the lack of postprandial pain. In addition imaging demonstrates patency of her mesenteric vessels. Discussed with her
recommend full GI workup for other etiologies. If all else is negative, could consider angiography via left brachial approach and attempting to stent the SMA to see if it would improve at all. However discussed with her I am not convinced that
this would be of benefit. She regardless should follow-up with us in the office regarding her overall atherosclerotic burden and peripheral arterial disease, and small aneurysm. I will see her in the office in scheduled follow-up.
[2024-01-26] MEDS: TOPROL XL 25 MG PO (10:31)
[2024-01-26] MEDS: NORVASC 5 MG PO (10:31)
[2024-01-26] MEDS: ZITHROMAX 250 MG PO (10:32)
[2024-01-26] MEDS: TYLENOL 1000 MG PO ×3 (10:32→21:18)
[2024-01-26] MEDS: PROTONIX IV 40 MG IV (10:34)
[2024-01-26] MEDS: NSS (PRESERVATIVE FREE) 10 ML IV (10:34)
--- NOTE | 2024-01-26 14:55 | CM ---
Met with pt at bedside
Reports lives with her daughter and grandson
Independent at baseline with adl's, ambulation, daughter does most cooking/cleaning
DME - none
SNF/HH - denies hx
Has ride at d/c
PCP - Daljit Mendieta
Pharm - [facility]
CM will follow for d/c needs
Plan - anticipate home no needs
[2024-01-26] MEDS: LIPITOR 80 MG PO (17:09)
[2024-01-26] MEDS: XARELTO 20 MG PO (17:09)
--- NOTE | 2024-01-26 23:00 | PTCARENOTE ---
Addendum entered by Elissa Rivera RN 01/27/24 02:17:
Something, not someone*
Original Note:
While helping to clean the patient after a BM on the BSC, RN noticed patient appeared to have a prolapsed uterus. Pt was asked if she was aware of this or if she had seen a waiter/waitress formal recently. Pt stated she thought someone was strange but didn't
think anything was wrong, and that she has not seen a waiter/waitress formal in awhile. House REGISTERED NURSE [facility] was made aware, no new orders at this time. Will pass along to provider in the morning.
[2024-01-26] MEDS: NSS IV (23:29)
[2024-01-27 03:36] VITALS: BP 137/81
[2024-01-27] MEDS: SYNTHROID 75 MCG PO (05:48)
[2024-01-27 06:00] VITALS: BMI 25.8
--- NOTE | 2024-01-27 06:41 | W.PN.UPDATE ---
Update Note
Progress Note Update
Nursing reports protrusion of what she believed to be was her uterus (but patient has history of AARON and unilateral oopherectomy) She doesn't appear uncomfortable and patient states no prior history. Will defer to day team for follow up.
[2024-01-27 06:59] LABS: ALT (SGPT) 17 U/L (0-35); AST (SGOT) 25 U/L (14-36); Albumin 3.1 g/dl (3.5-5.0); Alkaline Phosphatase 66 U/L (38-126); Blood Urea Nitrogen 12 mg/dl (7-17); Calcium 8.5 mg/dl (8.4-10.2); Carbon Dioxide 32 mmol/L (22-30); Chloride 102 mmol/L (98-107); Estimated Creatinine Clearance 67 ml/min; Glucose 67 mg/dl (70-99); Lipase 42 U/L (23-300); Potassium 3.9 mmol/L (3.5-5.1); Sodium 139 mmol/L (135-145); Total Bilirubin 0.5 mg/dl (0.2-1.3); Total Protein 5.2 g/dl (6.3-8.2); eGFR > 60.00
[2024-01-27 07:15] VITALS: BP 130/78
[2024-01-27] MEDS: SYMBICORT 80/4.5 MCG INHALER 2 PUFF INH ×2 (07:17→20:02)
[2024-01-27] MEDS: SPIRIVA RESPIMAT 2.5 MCG 2 PUFF INH (07:17)
--- NOTE | 2024-01-27 07:57 | W.PN.GI.CBS2 ---
Addendum entered and electronically signed by Rene Berry DO 01/27/24 09:14:
I saw and examined the patient.
The SOCIOLOGY ADJUNCT INSTRUCTOR's note was reviewed and I agree with the note.
Comment: Personally reviewed CT imaging this AM along with reviewing CTA with Radiologist given patient's persistent epigastric pain and tenderness on exam along with previously elevated lipase on admission (900s). Upon further review of CT, there
is a minimal amount of peripancreatic fat stranding around the pancreatic body and tail consistent with mild, acute interstitial edematous pancreatitis. No evidence of PD dilation, necrosis or other acute peripancreatic fluid collection. Given her
profound unintentional weight loss (reports around 30 lbs) and first episode of pancreatitis, pancreatic neoplasm is highest on differential. Will check additional TGs along with IgG4 (although doubt AI-pancreatitis). Unfortunately, we are unable to
obtain a MRI of her pancreas given her pacer (as not MRI-compatible). Discussed with Dr. Cassidy this AM regarding my concerns. Plans to perform EUS in 4-6 weeks as an outpatient to allow for inflammation to resolve. She needs very close follow-up as an
outpatient to ensure she is not lost to follow-up which we will arrange. Otherwise, she is more hungry this AM which is a good sign and suspect she has mild, acute uncomplicated pancreatitis but needs further structural imaging with EUS.
Plan:
- Okay to ADAT to low-fat diet
- Check TGs and IgG4. Defer further w/u (ie hereditary testing)
- May resume a/c today as no plans for EUS
- Unable to perform MRI while inpatient, EUS in 4-6 weeks as outpatient with Dr. Cassidy
- Continue empiric PPI
- Await pathology results from EGD
- Will arrange close outpatient f/u with me in the GI office for both arranging EUS along with an eventual colonoscopy as outpatient
- Abstain from all EtOH, smoking cessation
- Rest of care as outlined below
Original Note:
Today's Communication / Plan
-
etiology of epigastric pain with elevated lipase related to pancreatitis vs other
reviewed CTA with Dr. paulino -- there is concern for mild acute pancreatitis
Pt has minimal ETOH use, I reviewed meds noted increased amlodipine to 5mg and Synthroid added in September but changes made after ER eval for similar pain, add Triglyceride level and IGG4
pt unable to do MRI with pacer
will need to consider EUS -- will review with Dr. Cassidy for timing IP vs more likely outpatient pending diet tolerance
Pt remains on Xarelto with dose last PM
cont PPI
ok for trial of diet as pt feeling hungry
will follow
Assessment / Plan
-
Pt is a 78yo with hx COPD, PAD with prior LE stents with prior femoral artery occlusion, afib on Xarelto, tobacco abuse, AAA, HTN, hyperlipidemia, gastric ulcers, pacer, chronic pain with onset of abdominal pain. Pt reports pain on and off for
months. After admission noted with stable hbg 14, platelets 114, normal LFT's but lipase 906.
01/25/24 CTA on admission with stable AAA 3.6 cm, severe stenosis of both renal arteries, chronic iliac art occlusion, renal atrophy with chronic ischemia, diverticulosis, pelvic floor disfunction with rectoceles, small HH, AARON, BSO and DDD an
pancreas appears normal.-- with reread concern for minimal amount of peripancreatic fat stranding around pancreatic body and tail consistent with mild acute interstitial edematous pancreatitis no ductal dilation, pancreatic necrosis, or acute
peripancreatic fluid collection.
01/26/24 US abdomen
1. No evidence of cholelithiasis, acute cholecystitis, or biliary ductal dilation.
2. Abdominal aortic aneurysm, measuring 3.4 cm in greatest transverse dimension, also seen on yesterday's CT.
3. Pancreas was not well visualized due to overlying bowel gas
01/26/24 EGD Normal proximal and mid esophagus 2 nodules in esophagus, small HH, benign gastric polyps, mild gastritis, mild duodenitis no finding to account for pain
-epigastric abdominal pain
-concern for peripancreatic fat stranding around pancreatic body and tail consistent with mild acute pancreatitis
-elevated lipase
-wt loss
-CT with renal artery stenosis and chronic iliac art occlusion
other medical problems:
-COPD
-PAD with prior LE stents/prior femoral artery occlusion
-afib on Xarelto
-tobacco abuse
-HTN
-hyperlipidemia
-gastric ulcers
-bradycardia/pacer
-chronic pain
-diverticulosis
-CT with pelvic floor dysfunction and rectocele
-HH
PLAN:
etiology of epigastric pain with elevated lipase related to pancreatitis vs other
reviewed CTA with Dr. paulino -- there is concern for mild acute pancreatitis
Pt has minimal ETOH use, I reviewed meds noted increased amlodipine to 5mg and Synthroid added in September but changes made after ER eval for similar pain, add Triglyceride level and IGG4
pt unable to do MRI with pacer
will need to consider EUS -- will review with Dr. Cassidy for timing IP vs more likely outpatient pending diet tolerance
Pt remains on Xarelto with dose last PM
cont PPI
ok for trial of diet as pt feeling hungry
will follow
Subjective
Subjective
Date of Service: January 27, 2024
still with epigastric pain but feeling hungry 01/25 brown stool
Objective
Data Reviewed
Laboratory Data:
Laboratory Results
01/26/24 04:30
01/27/24 04:26
Laboratory Results
Total Bilirubin 0.5 mg/dl (0.2-1.3) 01/27/24 04:26
AST 25 U/L (14-36) 01/27/24 04:26
ALT 17 U/L (0-35) 01/27/24 04:26
Alkaline Phosphatase 66 U/L (38-126) 01/27/24 04:26
Lipase 42 U/L (23-300) 01/27/24 04:26
Vital Signs and I&O:
Vital Signs
Temp Pulse Resp BP Pulse Ox
97.9 F 88 15 137/81 92
01/27/24 03:36 01/27/24 07:23 01/27/24 07:23 01/27/24 03:36 01/27/24 07:23
I&O
01/26/24 01/27/24 01/28/24
06:59 06:59 06:59
Intake Total 1440 / 1440 2620 / 2620
Balance 1440 / 1440 2620 / 2620
Physical Exam
Physical Exam
HEENT: Anicteric and Moist mucous membranes
Cardiology: Normal Sinus Rhythm
Pulmonary: Clear
GI: Soft, Non Distended and Tender (epigastric pain)
Extremities: No Edema
Neuro: Non Focal
[2024-01-27] MEDS: TOPROL XL 25 MG PO (08:20)
[2024-01-27] MEDS: TYLENOL 1000 MG PO ×3 (08:20→20:54)
[2024-01-27] MEDS: NORVASC 5 MG PO (08:20)
[2024-01-27] MEDS: ZITHROMAX 250 MG PO (08:20)
[2024-01-27] MEDS: PROTONIX IV 40 MG IV ×2 (08:22→20:46)
[2024-01-27] MEDS: NSS (PRESERVATIVE FREE) 10 ML IV ×2 (08:22→20:46)
[2024-01-27 09:23] LABS: Triglycerides 88 mg/dl (10-149)
--- NOTE | 2024-01-27 10:55 | W.PN.HOSP.TC ---
Addendum entered and electronically signed by Higinio Mix MD 01/27/24 15:52:
seen and examined by me independently in collaboration with the resident medical officer.
Lab data and imaging data reviewed.
Addendum as below :
Tolerating diet despite mild to moderate epigastric pain. Diagnosed with pancreatitis of unclear etiology. GI input noted. Recommend outpatient endoscopic ultrasound in 4 weeks once inflammation is subsided.
Gastritis evident on EGD. Biopsies pending. Continue with PPI.
Patient with vaginal prolapse. Suspect cystocele based on her symptoms. Longstanding for many years. Has not seek any help. Advised to see uro-TECHNICAL SOLUTIONS DIRECTOR Dr. Singletary. [id number] present at the bedside during this discussions.
Patient also lately having some cognitive impairment with memory issues. No prior history of stroke. She is a vasculopath with multiple vascular territory atherosclerosis and my concern would be vascular/small vessel changes in the brain and
cognitive impairment from it. Doubt acute stroke clinically. She is on blood thinners. Check a CT of the head without contrast and Mini-Mental status. If CT of the head is negative for acute findings patient advised to see neuropsychiatry
testing for dementia. as OP.
DC later today after CT head.
Original Note:
Today's Communication/Plan
-
Initiate diet
Reinitiate Xarelto
CT head without contrast
Mini-Mental status exam
Assessment / Plan
Assessment / Plan
Assessment:
70-year-old female past medical history ASCVD, PAD with stents and AAA presents for intermittent abdominal pain of the epigastrium.
Plan:
#Acute on chronic intermittent abdominal pain
Patient and daughter endorse months of chronic abdominal pain and decreased appetite with associated 40 pound weight loss
Lipase elevated to 900 on admission, with associated epigastric pain
Lipase today within normal limits, patient still endorses mild epigastric pain
GI thinks etiology likely pancreatitis, CT was reread and seems there are findings of pancreatitis on CT as well as elevated lipase and clinical exam findings
Patient has fusiform infrarenal AAA, no evidence of interval enlargement since 09/13/2023
Vascular surgery signed off, will follow with the patient as an outpatient for her PAD
Status post upper endoscopy
GI recommends starting patient on diet and following up in their office in 4 to 6 weeks for an endoscopic ultrasound
Patient initiated on PPI IV twice daily
Reinitiated patient on Xarelto
#Renal artery stenosis
Chronic occlusion of right external iliac
He is a former infrarenal AAA�3.6 cm
Known history PAD with stents
Current smoker
Hyperlipidemia
Continue statin
#Confusion
Patient endorses feeling more confused since April
CT head ordered without contrast
Will evaluate patient with MME
#Hypercholesterolemia
Continue home statin Lipitor
#Essential hypertension
Continue home blood pressure meds, amlodipine and metoprolol
#History of paroxysmal atrial fibrillation
Continue Xarelto and metoprolol
#COPD
stable
Not requiring 02
Continue chronic Zithromax daily for chronic maintenance
#Nicotine abuse
Smoking cessation discussed with patient
Recommended patient follow-up with primary care physician
DVT: Xarelto
CODE STATUS and DNR
Diet: N.p.o.
Data:
CT Abd/pelvis Angio W/wo Iv
1. Fusiform infrarenal abdominal aortic aneurysm (3.6 cm AP dimension) without evidence for interval enlargement since 09/13/2023.
2. 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
3. 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
4. Moderate to severe right renal atrophy with suggestion of chronic ischemia.
5. Severe diverticulosis in the sigmoid colon.
6. Severe pelvic floor dysfunction with a rectocele.
7. Small hiatal hernia.
8. Previous AARON-BSO and appendectomy.
9. Severe multilevel discogenic degenerative disease in the lumbar spine.
08/15/23 ECHO
LVEF 55-60%.
Aortic sclerosis without stenosis.
No significant change since the prior study of 2019.
Anticipated Discharge: Within 24 hours
Subjective/Interval History
-
Date of Service: January 27, 2024
nursing reports uterine protrusion- per pt this is a chronic issue
Pt daughter requests thyroid labs
Objective Data
-
Labs:
Laboratory Results
01/27/24
04:26
Sodium 139
Potassium 3.9
Chloride 102
Carbon Dioxide 32 H
BUN 12
Creatinine 0.6
Glucose 67 L
Calcium 8.5
Total Bilirubin 0.5
AST 25
ALT 17
Alkaline Phosphatase 66
Vital Signs:
Vital Signs
Temp Pulse Resp BP Pulse Ox
98.3 F 88 15 130/78 92
01/27/24 07:15 01/27/24 07:23 01/27/24 07:23 01/27/24 07:15 01/27/24 07:23
I&O
01/26/24 01/27/24 01/28/24
06:59 06:59 06:59
Intake Total 1440 / 1440 2620 / 2620
Balance 1440 / 1440 2620 / 2620
Review of Systems
-
History Source: Patient
Constitutional: Reports No Symptoms
Respiratory: Reports No Symptoms
Cardiac: Reports No Symptoms
Abdomen/GI: Reports No Symptoms
Genitourinary: Reports Frequency, Incontinence and Urgency; Denies Bleeding
Physical Exam
-
General: Well Developed, Well Nourished, No Apparent Distress, Comfortable and Conversant
Respiratory: Clear to Auscultation
Cardiac: Regular Rhythm and S1/S2
GI: Soft, Nontender, Nondistended and Normal Bowel Sounds
Genito-urinary: Other (Prolapse seen protruding through vagina)
Skin: Warm and Dry
Neuro: Awake, Alert, Oriented and AO x 3
Psych: Calm and Intact Judgement/Insight
Data Reviewed
-
CT Scan: Report Reviewed by me and Discussed with Physician
Labs: Labs Reviewed by me and Discussed with Physician
--- NOTE | 2024-01-27 11:25 | W.PN.UPDATE ---
Update Note
Progress Note Update
updated patient and daughter in law jada with testing. Plan for OP EUS and office visit. If symptoms worse and unable to eat return to hospital. Will add ensure with wt loss and follow up TSH with recent start of thyroid treatment several
months ago. Discussed concern for forgetfulness and reviewed with Dr. Mix.
[2024-01-27 11:33] VITALS: BP 115/60
[2024-01-27 12:05] LABS: TSH Reflex To Free T4 0.42 uIU/ml (0.47-4.68)
[2024-01-27 12:34] LABS: Free T4 1.53 ng/dl (0.78-2.19)
[2024-01-27 15:15] VITALS: BP 133/74
[2024-01-27] MEDS: XARELTO 20 MG PO (17:24)
[2024-01-27] MEDS: LIPITOR 80 MG PO (17:25)
[2024-01-27 19:30] VITALS: BP 124/72
[2024-01-27 23:42] VITALS: BP 124/72
[2024-01-28 03:15] VITALS: BP 155/100
[2024-01-28] MEDS: SYNTHROID 75 MCG PO (05:12)
[2024-01-28 06:00] VITALS: BMI 25.1
[2024-01-28 06:32] LABS: Lipase 54 U/L (23-300)
--- NOTE | 2024-01-28 06:36 | DOWNTIME ---
There was a [employer] Client Information Officer Downtime on 01/28/2024 from 0100 to 01/28/2024 at 0300. Downtime documentation of patient's care, including medication administrations, has been reconciled in the electronic record per guidelines. Refer to the
patient's paper chart under the miscellaneous tab to see printed paper medication records and downtime forms.
[2024-01-28 07:09] VITALS: BP 130/80
[2024-01-28 07:31] LABS: Glucose - Point of Care 88 mg/dl (70-99)
--- NOTE | 2024-01-28 08:08 | W.PN.GI.CBS2 ---
Addendum entered and electronically signed by Rene Berry, 01/28/24 09:58:
I saw and examined the patient.
The MOVIE OPERATOR's note was reviewed and I agree with the note.
Comment: Agree with below. Currently patient is improving clinically although still with mild epigastric discomfort but tolerating diet without difficulty without worsening pain or nausea/vomiting. Suspect mild, acute uncomplicated pancreatitis.
Unable to perform MRI while inpatient given her idiopathic pancreatitis. Given her age and unintentional weight loss, she needs an EUS for structural evaluation to r/o pancreatic neoplasm. TG wnl along with calcium and nml LFTs. No significant
alcohol. IgG4 still pending but extremely low suspicion for AIP. Has follow-up with me in the office in two weeks and can reassess how she is doing. She will also require a colonoscopy as no prior colonoscopy in the past along with her weight loss.
Will attempt to coordinate both the EUS and colonoscopy at the same time as an outpatient with Dr. Cassidy. Continue empiric PPI and agree with Vascular surgery f/u given her risk factors for chronic mesenteric ischemia although doubt this contributing
to her current presentation. Rest of care as outlined below. Will continue to follow if she remains inpatient.
Original Note:
Today's Communication / Plan
-
etiology of epigastric pain with elevated lipase related to pancreatitis vs other
etiology of pancreatitis unclear, minimal ETOH use, TG 88 01/26, IGG4 pending but prior level normal in 2012
plan for 02/[address] Berry and 02/22 EUS as unable to do MRI with pacer will review with Dr. Cassidy if can add colonoscopy for 02/22 with no prior screening
still with pain but tolerating diet
TSH low but T4 stable on follow up labs
HCT stable with some change in mental status
Pt remains on Xarelto
cont PPI
Pt also with mild thrombocytopenia etiology unclear may need to consider heme eval if persists
will follow
Assessment / Plan
-
Pt is a 78yo with hx COPD, PAD with prior LE stents with prior femoral artery occlusion, afib on Xarelto, tobacco abuse, AAA, HTN, hyperlipidemia, gastric ulcers, pacer, chronic pain with onset of abdominal pain. Pt reports pain on and off for
months. After admission noted with stable hbg 14, platelets 114, normal LFT's but lipase 906.
01/25/24 CTA on admission with stable AAA 3.6 cm, severe stenosis of both renal arteries, chronic iliac art occlusion, renal atrophy with chronic ischemia, diverticulosis, pelvic floor disfunction with rectoceles, small HH, AARON, BSO and DDD an
pancreas appears normal.-- with reread concern for minimal amount of peripancreatic fat stranding around pancreatic body and tail consistent with mild acute interstitial edematous pancreatitis no ductal dilation, pancreatic necrosis, or acute
peripancreatic fluid collection.
01/26/24 US abdomen
1. No evidence of cholelithiasis, acute cholecystitis, or biliary ductal dilation.
2. Abdominal aortic aneurysm, measuring 3.4 cm in greatest transverse dimension, also seen on yesterday's CT.
3. Pancreas was not well visualized due to overlying bowel gas
01/26/24 EGD Normal proximal and mid esophagus 2 nodules in esophagus, small HH, benign gastric polyps, mild gastritis, mild duodenitis no finding to account for pain
-epigastric abdominal pain
-concern for peripancreatic fat stranding around pancreatic body and tail consistent with mild acute pancreatitis
-elevated lipase
-wt loss
-change in mnetal status
-CT with renal artery stenosis and chronic iliac art occlusion
-thrombocytopenia
other medical problems:
-COPD
-PAD with prior LE stents/prior femoral artery occlusion
-afib on Xarelto
-tobacco abuse
-HTN
-hyperlipidemia
-hx gastric ulcers
-bradycardia/pacer
-chronic pain
-diverticulosis
-CT with pelvic floor dysfunction and rectocele
-HH
PLAN:
etiology of epigastric pain with elevated lipase related to pancreatitis vs other
etiology of pancreatitis unclear, minimal ETOH use, TG 88 01/26, IGG4 pending but prior level normal in 2012
plan for 02/[address] Berry and 02/22 EUS as unable to do MRI with pacer will review with Dr. Cassidy if can add colonoscopy for 02/22 with no prior screening
still with pain but tolerating diet
TSH low but T4 stable on follow up labs
HCT stable with some change in mental status
Pt remains on Xarelto
cont PPI
Pt also with mild thrombocytopenia etiology unclear may need to consider heme eval if persists
will follow
Subjective
Subjective
Date of Service: January 28, 2024
tolerating diet, still some abdominal pain 01/25 brown stool
Objective
Data Reviewed
Laboratory Data:
Laboratory Results
01/26/24 04:30
01/27/24 04:26
Laboratory Results
Total Bilirubin 0.5 mg/dl (0.2-1.3) 01/27/24 04:26
AST 25 U/L (14-36) 01/27/24 04:26
ALT 17 U/L (0-35) 01/27/24 04:26
Alkaline Phosphatase 66 U/L (38-126) 01/27/24 04:26
Lipase 54 U/L (23-300) 01/28/24 04:27
Vital Signs and I&O:
Vital Signs
Temp Pulse Resp BP Pulse Ox
98.6 F 83 15 130/80 94
01/28/24 07:09 01/28/24 07:09 01/28/24 07:09 01/28/24 07:09 01/28/24 03:15
I&O
01/27/24 01/28/24 01/29/24
06:59 06:59 06:59
Intake Total 2620 / 2620 270 / 270
Balance 2620 / 2620 270 / 270
Physical Exam
Physical Exam
HEENT: Anicteric and Moist mucous membranes
Cardiology: Normal Sinus Rhythm
Pulmonary: Wheezes (mild )
GI: Soft, Non Distended and Tender (mild epigastric pain )
Extremities: No Edema
Neuro: Other (occasional forgetfulness )
[2024-01-28] MEDS: PROTONIX IV 40 MG IV (08:25)
[2024-01-28] MEDS: TOPROL XL 25 MG PO (08:25)
[2024-01-28] MEDS: TYLENOL 1000 MG PO (08:25)
[2024-01-28] MEDS: NORVASC 5 MG PO (08:25)
[2024-01-28] MEDS: ZITHROMAX 250 MG PO (08:25)
[2024-01-28] MEDS: NSS (PRESERVATIVE FREE) 10 ML IV (08:26)
[2024-01-28] MEDS: SYMBICORT 80/4.5 MCG INHALER 2 PUFF INH (08:35)
[2024-01-28] MEDS: SPIRIVA RESPIMAT 2.5 MCG 2 PUFF INH (08:35)
--- NOTE | 2024-01-28 09:18 | W.PN.HOSP.TC ---
Addendum entered and electronically signed by Higinio Mix MD 01/28/24 15:28:
Seen and examined by me independently in collaboration with the medical language specialist.
Lab data and imaging data reviewed.
Addendum as below :
Tolerating diet with some epigastric pain. No nausea vomiting. No constipation. No shortness of breath. Not on oxygen. Does not need home O2. Chest clear. Abdomen soft. Some epigastric tenderness. Hemodynamically stable. Afebrile.
Patient to follow-up with GI for idiopathic pancreatitis. Plan for endoscopy ultrasound as an outpatient noted.
She already takes an appointment with POWDER COAT PAINTER for her prolapsed vagina.
Medically stable for DC.
Stressed about the importance of smoking again.
Discussed with son at bedside
Total time of discharge 35 minutes.
Original Note:
Today's Communication/Plan
-
Discharge with outpatient follow-up
Assessment / Plan
Assessment / Plan
Assessment:
70-year-old female past medical history ASCVD, PAD with stents and AAA presents for intermittent abdominal pain of the epigastrium.
Plan:
#Acute on chronic intermittent abdominal pain
Patient and daughter endorse months of chronic abdominal pain and decreased appetite with associated 40 pound weight loss
Lipase elevated to 900 on admission, with associated epigastric pain
Lipase today within normal limits, patient still endorses mild epigastric pain
GI thinks etiology likely pancreatitis, CT was reread and seems there are findings of pancreatitis on CT as well as elevated lipase and clinical exam findings
Patient has fusiform infrarenal AAA, no evidence of interval enlargement since 09/13/2023
Vascular surgery signed off, will follow with the patient as an outpatient for her PAD
Status post upper endoscopy
GI recommends starting patient on diet and following up in their office in 4 to 6 weeks for an endoscopic ultrasound
Patient initiated on PPI IV twice daily
Reinitiated patient on Xarelto
#Renal artery stenosis
Chronic occlusion of right external iliac
Past medical history infrarenal AAA�3.6 cm
Stable per scans
Known history PAD with stents
Current smoker
Hyperlipidemia
Continue statin
Follow-up with vascular surgery as outpatient
#Confusion
Patient endorses feeling more confused since April
CT head ordered without contrast
CT head demonstrated no acute intracranial abnormalities, however there was some mild decreased attenuation in periventricular white matter bilaterally which was comparable with small vessel related ischemic changes
Patient was evaluated with MMA yesterday and her score was 26, within normal limits only lost points for forgetfulness
Patient will follow-up with neuro psychiatry after discharge
#Hypercholesterolemia
Continue home statin Lipitor
#Vaginal prolapse
Patient endorses chronic vaginal prolapse with associated urinary symptoms
Likely cystocele
No vaginal bleeding reported
Patient will follow-up with CLINICAL NURSE EDUCATOR as outpatient
#Essential hypertension
Continue home blood pressure meds, amlodipine and metoprolol
#History of paroxysmal atrial fibrillation
Continue Xarelto and metoprolol
#COPD
stable
On 2 L today, currently attempting to wean off oxygen
Patient was able to be weaned off oxygen while satting well
Continue chronic Zithromax daily for chronic maintenance
Patient will follow-up with her elastic assembler after discharge
#Nicotine abuse
Smoking cessation discussed with patient
Recommended patient follow-up with primary care physician
DVT: Xarelto
CODE STATUS and DNR
Diet: N.p.o.
Data:
CT Abd/pelvis Angio W/wo Iv
1. Fusiform infrarenal abdominal aortic aneurysm (3.6 cm AP dimension) without evidence for interval enlargement since 09/13/2023.
2. 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
3. 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
4. Moderate to severe right renal atrophy with suggestion of chronic ischemia.
5. Severe diverticulosis in the sigmoid colon.
6. Severe pelvic floor dysfunction with a rectocele.
7. Small hiatal hernia.
8. Previous AARON-BSO and appendectomy.
9. Severe multilevel discogenic degenerative disease in the lumbar spine.
08/15/23 ECHO
LVEF 55-60%.
Aortic sclerosis without stenosis.
No significant change since the prior study of 2019.
Anticipated Discharge: Today
Subjective/Interval History
-
Date of Service: January 28, 2024
No acute vents overnight
Patient reports bowel movement yesterday
Tolerating diet well
Patient reports epigastric pain has not improved since admission
Objective Data
-
Vital Signs:
Vital Signs
Temp Pulse Resp BP Pulse Ox
98.6 F 83 15 130/80 100
01/28/24 07:09 01/28/24 07:09 01/28/24 07:09 01/28/24 07:09 01/28/24 08:26
I&O
01/27/24 01/28/24 01/29/24
06:59 06:59 06:59
Intake Total 2620 / 2620 270 / 270
Balance 2620 / 2620 270 / 270
Review of Systems
-
History Source: Patient
Constitutional: Reports Weight Loss
Respiratory: Reports No Symptoms
Cardiac: Reports No Symptoms
Abdomen/GI: Reports Abdominal Pain; Denies Nausea, Vomiting, Diarrhea or Constipated
Physical Exam
-
General: Well Developed, Well Nourished, No Apparent Distress, Comfortable and Conversant
Respiratory: Clear to Auscultation
Cardiac: Regular Rhythm and S1/S2
GI: Soft, Nondistended, Normal Bowel Sounds and Tender
Skin: Warm and Dry
Neuro: Awake, Alert, Oriented and AO x 3
Psych: Calm and Intact Judgement/Insight
Data Reviewed
-
Labs: Labs Reviewed by me and Discussed with Physician
[2024-01-28 10:52] VITALS: BP 106/63
--- NOTE | 2024-01-28 12:59 | CM ---
CM reviewed pt with Dr Lira- gerson for dc
Bedside meeting with pt
Per home O2 eval, no needs
Discussion with dtr requesting resources
Sabrina Walton info provided as well as directions for application and section 8 material
Family notes pt likely will lose her home at some point and they want to be proactive
Dental clinic info also provided as pt with dental coverage through insurance plan
Attempted call to [facility] but no answer
Provided list fo dental clinics along with [facility]
Family will follow up with [facility]
IMM verbally completed- copy provided
Discharge Disposition- home, no needs- family transport
--- NOTE | 2024-01-28 15:02 | W.DCSUMMARY ---
Discharge Summary
Discharge Data
Date of Admission: 01/25/24
Date of Discharge: 01/28/24
-
Pending Results: No
Hospital Course
Discharging Physician : Dominguez Lira
Disposition : Home
Primary care physician : Dr. Mendieta
Principal Discharge diagnosis : Acute pancreatitis
Chronic Discharge diagnosis : Renal artery stenosis, confusion, hypercholesterolemia, essential hypertension, history of paroxysmal atrial fibrillation, COPD, nicotine abuse
Hospital Course : 78-year-old female with an extensive vascular history presents to the [place] emergency department for abdominal pain. Pain has been intermittent for months and chronic. At the time of admission she endorses epigastric pain
with no nausea or vomiting. Patient states that this abdominal pain has been chronic for the past 6 months and is associated with a 40 pound weight loss. Patient received a CT abdomen pelvis in the emergency department which at the time of feet
did not demonstrate any acute intra-abdominal pathologies. Patient's lipase on admission was 900. Patient was made n.p.o. given IV fluids and admitted to [facility] for further evaluation and management. The next day patient's lipase down trended to
within normal limits however her epigastric pain remained consistent throughout her stay and at the time of discharge. Gastroenterology was consulted and followed the patient throughout her stay. Gastroenterology had suspicions about pancreatitis,
patient did meet diagnostic criteria for acute pancreatitis. Radiology was contacted and asked to reevaluate the CAT scan. On reevaluation it was noted that there was markers of pancreatic inflammation. GI diagnosed the patient with acute
pancreatitis. Patient was able to tolerate a diet and her diet was advanced from clear liquids to solids and patient tolerated well with no nausea or vomiting. During her stay patient was noted to have a vaginal prolapse, per patient this is
chronic and there are no new symptoms and patient has a CLINICAL ADVISOR who she follows. Patient will follow-up with her CLINICAL ADVISOR as an outpatient after discharge. Patient's [id number] brought up the fact that the patient has been having forgetfulness
over the past 6 months. Mini-Mental status exam was performed on patient and her score was 26, within normal limits. CT head without contrast was also within normal limits. Conversation was had with patient and family and they were told to
follow-up with a neuropsychiatrist on discharge for evaluation of forgetfulness. Patient will follow-up with her primary care physician within 1 week of discharge. Patient will follow-up with her CLINICAL ADVISOR after discharge. Patient will follow-up with
gastroenterology in 4 to 6 weeks for an endoscopic ultrasound. Patient will follow-up with pulmonology after discharge for management of COPD. Patient will follow-up with vascular surgery as an outpatient for management of her peripheral arterial
disease. Patient will follow-up with a neuropsychiatrist for forgetfulness after discharge. Patient was discharged home with oral Protonix.
Important imaging findings :
01/25/2024 CT abdomen pelvis, impression:
1. Fusiform infrarenal abdominal aortic aneurysm (3.6 cm AP dimension) without evidence for interval enlargement since 09/13/2023.
2. 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
3. 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
4. Moderate to severe right renal atrophy with suggestion of chronic ischemia.
5. Severe diverticulosis in the sigmoid colon.
6. Severe pelvic floor dysfunction with a rectocele.
7. Small hiatal hernia.
8. Previous AARON-BSO and appendectomy.
9. Severe multilevel discogenic degenerative disease in the lumbar spine.
01/26/2024 complete abdominal ultrasound, impression:
1. No evidence of cholelithiasis, acute cholecystitis, or biliary ductal dilation.
2. Abdominal aortic aneurysm, measuring 3.4 cm in greatest transverse dimension, also seen on yesterday's CT.
3. Pancreas was not well visualized due to overlying bowel gas.
01/27/[address] without contrast, impression:
Procedure findings :
No procedures
Discharge Plan
-
Patient Disposition: Home (Routine Discharge)
Discharge Diagnosis/Procedures: Acute pancreatitis, forgetfulness, COPD, vaginal prolapse
Condition: Good
Diet: Low Fat
Activity: As tolerated
Driving Restrictions: As prior to admission
Bathing Restrictions: None
Activity Restrictions/Additional Instructions:
Please follow up with your OBGYN for your vaginal prolapse
Please follow up with your sweeper cleaner industrial for smoking cessation and management of COPD
Please follow up with GI in 4-6 weeks for an ultrasound
Please follow up with vascular surgery
Please follow up with your PCP within one week of discharge for a neuropsychiatrist referral and for management of your chronic medical conditions
Referrals:
Og Cassidy MD [Active] - 02/23/24 (follow up 02/[address] Cassidy, Hold Shaq 2 days prior to procedure)
Daljit Mendieta CRNP [Family Provider] - in less than 1 week
Rene Berry DO [Active] - 02/10/24 3:00 pm
(follow up 02/09 in office as scheduled for hospital follow and review for colonoscopy
Please call to reschedule if you can not keep this appointment. If your insurance requires a referral please contact your primary care physician prior to your appointment. )
Layla Robledo CRNP [Specified Professional Personl] - 02/25/24 9:45 am (Vascular surgery follow-up)
Additional Discharge Medication Instructions: Please take protonix 40 mg by mouth once a day and revaluate if needed with PCP
We decreased your tylenol from 1500 twice a day to 1000 twice a day
Prescriptions:
New
pantoprazole [Protonix] 40 mg tablet,delayed release (DR/EC)
40 mg PO DAILY Qty: 30 0RF
Continued
azithromycin 250 MG tablet
250 mg PO DAILY
amlodipine 2.5 MG tablet
5 mg PO DAILY
Xarelto 20 MG tablet
20 mg PO QPM Qty: 0 0RF
atorvastatin 80 mg Tablet
80 mg PO QPM
tramadol 50 mg Tablet
50 mg PO BIDPRN PRN (Reason: moderate pain)
metoprolol succinate 25 mg Tablet Extended Release 24 Hr
25 mg PO DAILY
albuterol sulfate 90 mcg/actuation Hfa Aerosol Inhaler
2 puff INHALATION R Q6HPRN PRN (Reason: SOB, Wheezes)
levothyroxine [Synthroid] 75 mcg Tablet
75 mcg PO DAILY
Trelegy Ellipta 100-62.5-25 mcg Blister With Device
1 inh INHALATION R DAILY
Changed
acetaminophen [Tylenol Extra Strength] 500 MG tablet
1,000 mg PO BID Qty: 0 0RF
Discharge Orders:
Discharge Patient (As Directed); Ordered 01/28/24
Ordered By: Andrea De Leon
Discharge Date and Time
Discharge Date/Time: 01/28/24 13:25
Print Language: ITALIAN
[2024-01-29 04:53] LABS: IgG Subclass 4 24 mg/dL (1-123)
== END 2024-01-28 13:25 | disposition home or self-care (01) | DRG 440 ==
LOC: 2 SOUTH 17:17
PROVIDERS: Nurse Practitioner; ADMITTING PHYSICIAN Internal Medicine; ATTENDING PHYSICIAN Internal Medicine; EMERGENCY PHYSICIAN Emergency Medicine; FAMILY PHYSICIAN Registered Nurse; OTHER PHYSICIAN Student in an Organized Health Care Education/Training Program; OTHER PHYSICIAN Surgery Vascular Surgery
DX: K85.90 Acute pancreatitis without necrosis or infection, unspecified (principal); I70.1 Atherosclerosis of renal artery; E78.00 Pure hypercholesterolemia, unspecified; I10 Essential (primary) hypertension; N81.10 Cystocele, unspecified
CPT/HCPCS: 88305; 70450; 74174; 76700; 80053; 81003; 82787; 82962; 83605; 83690; 84439; 84443; 84478; 85025; 85027; 88342; 94640; 99285; Q9967

== ENCOUNTER → 2024-02-10 16:03 | Outpatient (REF) | payer OTHER, SELFPAY ==
[2024-02-10 17:05] LABS: ALT (SGPT) 19 U/L (0-35); AST (SGOT) 34 U/L (14-36); Albumin 4.4 g/dl (3.5-5.0); Alkaline Phosphatase 101 U/L (38-126); Blood Urea Nitrogen 16 mg/dl (7-17); Calcium 9.5 mg/dl (8.4-10.2); Carbon Dioxide 30 mmol/L (22-30); Chloride 99 mmol/L (98-107); Glucose 104 mg/dl (70-99); Lipase 93 U/L (23-300); Magnesium 1.9 mg/dl (1.6-2.3); Potassium 3.9 mmol/L (3.5-5.1); Sodium 137 mmol/L (135-145); Total Bilirubin 0.5 mg/dl (0.2-1.3); Total Protein 6.8 g/dl (6.3-8.2); eGFR > 60.00
[2024-02-10 18:01] LABS: Hematocrit 39.9 % (37.0-47.0); Hemoglobin 13.8 g/dL (12.0-16.0); Mean Corp Hgb Conc. 34.6 g/dL (33.0-37.0); Mean Corpuscular Hgb 30.8 pg (27.0-31.0); Mean Corpuscular Volume 89.1 fL (81.0-99.0); Mean Platelet Volume 10.7 fL (7.4-10.4); Platelet Count 187 10^3/uL (130-400); Red Blood Cell Count 4.48 10^6/uL (4.20-5.40); Red Cell Dist. Width 13.7 % (11.5-14.5); White Blood Cell Count 8.4 10^3/uL (4.8-10.8)
== END ==
LOC: REG 16:03
PROVIDERS: ATTENDING PHYSICIAN Student in an Organized Health Care Education/Training Program; FAMILY PHYSICIAN Registered Nurse
DX: K85.00 Idiopathic acute pancreatitis without necrosis or infection (principal)
CPT/HCPCS: 36415; 80053; 83690; 83735; 85027

== ENCOUNTER 2024-02-26 06:46 | Day surgery (SDC) | payer OTHER, SELFPAY ==
[2024-02-26 10:20] VITALS: BMI 24.0
[2024-02-26 10:21] VITALS: BP 138/81
[2024-02-26] MEDS: DUONEB 3 ML INH (10:41)
[2024-02-26 11:56] VITALS: BP 122/78
[2024-02-26 12:00] VITALS: BP 137/78
[2024-02-26 12:15] VITALS: BP 160/98
[2024-02-26 12:30] VITALS: BP 170/78
== END 2024-02-26 13:25 | disposition home or self-care (01) ==
LOC: SDS 06:46
PROVIDERS: ATTENDING PHYSICIAN Internal Medicine Gastroenterology
DX: K22.89 Other specified disease of esophagus (principal); K31.89 Other diseases of stomach and duodenum; K85.90 Acute pancreatitis without necrosis or infection, unspecified; K86.9 Disease of pancreas, unspecified; K92.9 Disease of digestive system, unspecified; R63.4 Abnormal weight loss; K20.80 Other esophagitis without bleeding
CPT/HCPCS: 43251; 43237; 88305; 94640

== ENCOUNTER → 2024-03-17 14:32 | Outpatient (REF) | payer OTHER, SELFPAY | LOC: RAD 14:32 | PROVIDERS: ATTENDING PHYSICIAN Registered Nurse; FAMILY PHYSICIAN Registered Nurse | DX: I73.9 Peripheral vascular disease, unspecified (principal) | CPT/HCPCS: 93922; 93925 ==

== ENCOUNTER → 2024-03-23 14:10 | Outpatient (REF) | payer OTHER, SELFPAY | LOC: RAD 14:10 | PROVIDERS: ATTENDING PHYSICIAN Registered Nurse; FAMILY PHYSICIAN Registered Nurse | DX: I65.23 Occlusion and stenosis of bilateral carotid arteries (principal) | CPT/HCPCS: 93880 ==

== ENCOUNTER → 2024-03-31 15:09 | Outpatient (REF) | payer OTHER, SELFPAY | LOC: RAD 15:09 | PROVIDERS: ATTENDING PHYSICIAN Surgery Vascular Surgery; FAMILY PHYSICIAN Registered Nurse | DX: I65.23 Occlusion and stenosis of bilateral carotid arteries (principal) | CPT/HCPCS: 70496; 70498; Q9967 ==

== ENCOUNTER → 2024-05-04 08:40 | Outpatient (REF) | payer OTHER, SELFPAY | LOC: DHCBC/DCA 08:40 | PROVIDERS: ATTENDING PHYSICIAN Internal Medicine Cardiovascular Disease; FAMILY PHYSICIAN Registered Nurse | DX: Z01.810 Encounter for preprocedural cardiovascular examination (principal) | CPT/HCPCS: 78452; 93017; A9500; J2785 ==

== ENCOUNTER 2024-05-17 06:18 | Inpatient (IN) | payer OTHER, SELFPAY ==
[2024-05-13 09:59] VITALS: BMI 25.1
[2024-05-13 10:23] LABS: % Basophils 0.5 % (0-2); % Eosinophils 0.3 % (0-6); % Immature Granulocytes 0.3 % (0-0.5); % Lymphocytes 19.5 % (20.5-51.1); % Monocytes 8.3 % (1.7-9.3); % Neutrophils 71.1 % (42.2-75.2); Absolute Lymphocytes 1.2 10^3/uL (1.2-3.4); Absolute Monocytes 0.5 10^3/uL (0.1-0.6); Absolute Neutrophils 4.4 10^3/uL (1.4-6.5); Hemoglobin 14.3 g/dL (12.0-16.0); Mean Corp Hgb Conc. 33.3 g/dL (33.0-37.0); Mean Corpuscular Hgb 30.8 pg (27.0-31.0); Mean Corpuscular Volume 92.5 fL (81.0-99.0); Mean Platelet Volume 10.6 fL (7.4-10.4); Nucleated Red Blood Cells % 0 %; Platelet Count 164 10^3/uL (130-400); Red Blood Cell Count 4.65 10^6/uL (4.20-5.40); Red Cell Dist. Width 13.6 % (11.5-14.5); White Blood Cell Count 6.2 10^3/uL (4.8-10.8)
[2024-05-13 10:38] LABS: Blood Urea Nitrogen 13 mg/dl (7-17); Calcium 9.5 mg/dl (8.4-10.2); Carbon Dioxide 38 mmol/L (22-30); Chloride 94 mmol/L (98-107); Estimated Creatinine Clearance 48 ml/min; Glucose 98 mg/dl (70-99); Potassium 4.3 mmol/L (3.5-5.1); Sodium 136 mmol/L (135-145); eGFR > 60.00
[2024-05-13 10:39] LABS: INR 1.03
[2024-05-13 10:40] LABS: APTT 34.6 Sec (23.4-35.0)
[2024-05-17] VITALS (19 sets, daily range): BP systolic 95–179; BP diastolic 54–93; BMI 25.1
[2024-05-17] MEDS: PERIDEX 0.12% ORAL RINSE 15 ML PO (06:50)
[2024-05-17] MEDS: BACTROBAN NASAL 1 GRAM NASAL (06:51)
[2024-05-17] MEDS: NSS 193 ML IV (06:52)
--- NOTE | 2024-05-17 07:05 | W.SUR.PREOP ---
Pre-Operative Surgical Note
-
I have examined this patient prior to the performance of the scheduled procedure.
The patient's condition is unchanged from the time of the current History and
Physical and the patient is able to undergo the scheduled procedure.
[2024-05-17] MEDS: DUONEB 3 ML INH (07:17)
--- NOTE | 2024-05-17 07:26 | PTCARENOTE ---
Pt's breath sounds coarse/decreased wheezing inspiratory and expiratory. sats 94-06 RA. Productive cough/professed heavy smoker. DUONEB given per Dr Shan vincent. Pt also stated walking up with left sided sore throat. Mild redness post pharynx.
[2024-05-17 08:52] LABS: ACT-LR - POC 319 Seconds (116-155)
--- NOTE | 2024-05-17 09:38 | W.SUR.POST ---
Surgical Immediate Post Op
Note
Pre Op Diagnosis: Carotid stenosis
Post Op Diagnosis: Same
Procedure Performed: Left TCAR
Primary Surgeon: Constantine
Research Methods Instructor: Isai BACA
Anesthesia: General
Estimated Blood Loss: 5cc
Fluids: See anesthesia flowsheet
Drains/Shunts: None
Specimens/Cultures: None
Doppler/Duplex/Angio (Y/N): Y
Complications: None
Operative Findings: Woke from anesthesia moving all extremities
--- NOTE | 2024-05-17 09:50 | SUR.PHASEI ---
Received pt on Cardene gtt at 3mg/hr. Parameters to keep BP SBP( 100-160). Cardene gtt turned off on arrival. BP 118/54. Will continue to monitor
[2024-05-17] MEDS: SUBLIMAZE 25 MCG IV ×2 (10:02→10:20)
--- NOTE | 2024-05-17 10:03 | OR.RPT ---
Operative Report
Operative Report
PROCEDURE DATE: 05/17/2024
Preoperative diagnosis: Critical left carotid artery stenosis, asymptomatic.
Postoperative diagnosis: same
Procedure:
1. Open exposure of left common carotid artery.
2. Transcarotid left carotid artery revascularization with stent (TCAR) with Enroute 8mm 10mm (tapered) x 40mm self-expanding stent, and utilizing Enroute TRAIN BRAKE OPERATOR flow reversal intraprocedural neuro protection.
3. Intraoperative EEG/SSEP monitoring.
4. Supervision and interpretation
CPT code 20374, SVS VQI TCAR #[id number]
Surgeon: Constantine
Mental Health Technician: Sana Alex NP, required for all aspects of procedure including assistance with traction/countertraction, wire manipulation/catheter delivery, assistance with closure.
Complications: None
Anesthesia: General
Indications for procedure:
Critical progressive left carotid artery stenosis, asymptomatic. Discussed recommendation for revascularization. Based on anatomy and plaque length, as well as high bifurcation, recommended TCAR. Risk/benefit/alternatives of the procedure were
fully discussed. Patient understood all wished to proceed.
Description of procedure:
Patient was identified brought to the operating room placed on the table in supine position. After the adequate administration of anesthesia and perioperative antibiotics she was prepped and draped in the standard surgical fashion. A standard
preoperative timeout was undertaken and everybody was in agreement the plan. A longitudinal incision was made at the base of the left neck between the heads of the sternocleidomastoid muscle just superior to the clavicle. This incision was carried
through the skin subcutaneous tissue. Using the electrocautery dissection was carried through the platysma muscle layer and then in the plane between the heads of the sternocleidomastoid muscle. Then using a combination of sharp dissection with
the Metzenbaum scissors and electrocautery I dissected along the anterior medial border of the internal jugular vein. Of note, the omohyoid muscle was noted crossing but was slightly cephalad I was able to retract it using the self-retaining
retractor (did not have to divided). The common carotid artery was identified and carefully dissected away from the surrounding structures take great care to avoid any injury to the structures. A vessel loop was passed around it. The common
carotid artery was dissected circumferentially only in the proximal portion of the exposed artery, and the anterior surface was dissected for another 2 cm. Next, a 5-0 Prolene pursestring stitch was placed on the anterior middle surface of the
common carotid artery at the anticipated puncture/cannulation site. The patient was given 6000 units of intravenous heparin.
Next, the right common femoral vein was punctured with a micropuncture kit under direct duplex ultrasound guidance. An 8 Russian venous sheath was placed over 0.035 inch wire into the vein. The sheath was flushed.
Next, while maintaining anterior tension on the vessel loop (single looped), the common carotid artery was punctured with a micropuncture needle (premarked) to only 1 cm and a premarked 0.014 inch wire was inserted and then the needle was exchanged
out for a premarked micropuncture sheath and advanced to 3 cm rito. The dilator and wire were then removed. Left anterior oblique angiogram was performed. This delineated the carotid bifurcation. It confirmed the severe stenosis in the proximal
internal carotid artery. As noted on CT scan imaging, the bulb into the proximal internal carotid artery was slightly bulbous, and then the stenosis was within that slightly bulbous portion, and then the internal carotid artery became more normal
in caliber. The carotid bifurcation was marked on the screen. I then advanced a 0.035 inch wire with a J curve at the tip. This was stopped just short of the bifurcation. I then exchanged the micropuncture sheath out for the [address] sheath, which was advanced to the footplate under fluoroscopy with careful vigilance of the distal tip of the wire. Once advanced to the footplate, the introducer and wire were removed. The tension from the vessel loop was released. And
the sheath was secured to the skin with silk suture. The sheath was burped back and also flushed carefully. Next repeat imaging was undertaken confirming the best angulation of the gantry for imaging. At this point, the angioplasty balloon and
stent were prepared. We pause to confirm the plan regarding balloon/stent, and confirmed adequate ACT over 300. Next, I connected the arterial sheath to the venous sheath with the filter section. As such passive flow reversal was initiated.
There were no evidence of any EEG or SSEP changes. We flushed the venous sheath to confirm adequate passive flow reversal.
At this point given that we were otherwise ready, I tightened my double looped vessel loop on the common carotid artery thereby initiating active flow reversal. Again I flushed the venous sheath to confirm active flow reversal. There was no EEG or
SSEP changes. I now used a precurved 0.014 inch wire and roadmap assisted fluoroscopy guidance to cannulate the internal carotid artery carefully. I was able to gain access into the distal cervical/proximal intracranial internal carotid artery.
Note, this proved to be actually challenging as the area of stenosis was quite severe and even navigating a 0.014 inch wire through it proved to be challenging. I was, finally, however able to gain wire access through the lesion and into the more
distal internal carotid artery. Next I used a balloon which was a [4 mm x 30 mm Cordis] standard angioplasty balloon. I then pre-angioplastied the stenosis. [The patient had been given glycopyrrolate to prevent any baroreceptor mediated
bradycardia.] The patient's blood pressure had also been optimized after discussion with our anesthesiology colleagues prior to initiation of flow reversal. I then quickly exchanged out my balloon catheter for the stent [(8mm x 10mm (tapered)x
40mm Enroute stent)]. The stent was positioned under roadmap guidance. When I was happy with the positioning I then unsheathed in the standard fashion. The stent delivery device was then removed. Completion angiography was undertaken after 1 to
2 minutes of waiting after deployment of the stent for the flow reversal to take effect. Completion angiogram demonstrated excellent result and it was done in 2 obliquities to confirm. No residual stenosis was noted. Good intracranial filling was
noted. At this point I was very satisfied. The 0.014 inch wire was then removed from the internal carotid artery. Next, the common carotid artery was unclamped. Finally I disconnected the flow reversal circuit.
Now, I tied down my 5-0 Prolene pursestring suture on the common carotid artery while removing the sheath. We gave some protamine to reverse the heparin, although it was not well-tolerated due to hypotension and therefore we stopped giving further
protamine. I irrigated the incision site and confirmed full hemostasis. Then, we closed in layers using single [id number] 2-0 Vicryl to reapproximate the sternocleidomastoid heads. Then we used 3-0 Vicryl platysma muscle running layer
followed by 4-0 Monocryl subcuticular running stitch. Dermabond was applied. The femoral vein sheath was also removed and manual pressure was applied to that site and hemostasis was noted there as well. The patient tolerated the procedure well.
She awoke moving all 4 extremities to command.
[2024-05-17 10:10] LABS: Hematocrit 38.5 % (37.0-47.0); Hemoglobin 12.2 g/dL (12.0-16.0); Mean Corp Hgb Conc. 31.7 g/dL (33.0-37.0); Mean Corpuscular Hgb 30.5 pg (27.0-31.0); Mean Corpuscular Volume 96.3 fL (81.0-99.0); Mean Platelet Volume 10.2 fL (7.4-10.4); Platelet Count 131 10^3/uL (130-400)
[2024-05-17 10:15] LABS: INR 1.01; PT 13.6 Sec (11.4-14.6)
[2024-05-17 10:16] LABS: APTT 38.2 Sec (23.4-35.0)
[2024-05-17 10:26] LABS: Blood Urea Nitrogen 13 mg/dl (7-17); Carbon Dioxide 30 mmol/L (22-30); Chloride 101 mmol/L (98-107); Estimated Creatinine Clearance 55 ml/min; Glucose 114 mg/dl (70-99); Potassium 3.7 mmol/L (3.5-5.1); Sodium 137 mmol/L (135-145); eGFR > 60.00
[2024-05-17] MEDS: NSS 1000 IV ×2 (11:21→22:43)
[2024-05-17] MEDS: MORPHINE SULFATE 2 MG IV (11:30)
--- NOTE | 2024-05-17 11:30 | PTCARENOTE ---
Patient received from PACU s/p L TCAR. NSR via cm, SaO2 @ 96% on 3lnc. L neck incision cdi, slightly ecchymotic. Patient c/o pain, medicated for such (see MAR). Neuro intact. Patient updated to plan of care for the afternoon, in agreement. See work
list for full assessment and interventions performed.
[2024-05-17] MEDS: ROXICODONE 5 MG PO ×2 (12:44→17:03)
--- NOTE | 2024-05-17 12:44 | CM ---
Reviewed chart. Met with Mrs. Sharma and her son to review discharge plans. Information was obtained by son because patient was sleeping. Son states prior to admission Mrs. Sharma resides with her daughter and grandson in a one story home with one
step to enter. Son states prior to admission Mrs. Tavarez was independent with ambulation and adls. Her son states she has a CPAP Machine at home but currently she is not using it. He states she has never needed [facility] Services. Son states she has a
prescription plan and uses [facility]. Medical work-up in progress. The discharge plan is to return home with her daughter and grandson when medically stable.
--- NOTE | 2024-05-17 14:47 | CON.INTV ---
Consultation
Consultation Request
Date/Time Consultation Requested: 05/17/24
Date/Time Consultation Performed: 05/17/24
Performing Provider: Constance
Reason for Consultation: ICU
Medical History
-
History of Present Illness:
Patient is a 78-year-old female with previous history of PAD, CAD, AAA, COPD/emphysema seen here for elective vascular procedure. Has history of bilateral carotid disease with high-grade stenosis requiring bilateral intervention. She is here for
elective TCAR. Underwent procedure on 05/17/2024 without complications. Admitted to ICU for observation postoperatively.
Past Medical History
Past Medical History: Other (see list below)
Social History
Tobacco: Smoker
Alcohol: None
Drug: None
Family History
Family History: Reviewed & Not Pertinent
Allergies / Home Medications
Allergies
Allergy/AdvReac Type Severity Reaction Status Date / Time
simvastatin Allergy Rash Verified 05/17/24 07:11
warfarin [From Coumadin] Allergy Unknown Verified 05/17/24 07:11
Home Medications
�Medication �Instructions �Recorded �Confirmed �Last Taken �Type
amlodipine 2.5 mg tablet 5 mg PO DAILY Blood Pressure 01/05/19 05/10/24 02/25/24 History
azithromycin 250 mg tablet 250 mg PO DAILY Infection 01/05/19 05/17/24 05/16/24 20:00 History
albuterol sulfate 90 mcg/actuation 2 puff inhalation R Q6HPRN PRN 09/23/22 05/10/24 Unknown History
aerosol inhaler SOB, Wheezes
atorvastatin 80 mg tablet 80 mg PO QPM High Cholesterol 09/23/22 05/17/24 05/16/24 20:00 History
metoprolol succinate 25 mg 25 mg PO DAILY Heart 09/23/22 05/17/24 05/17/24 05:00 History
tablet,extended release 24 hr Disease/Condition
fluticasone fur. 100 mcg-umeclid 1 inh inhalation R DAILY 01/25/24 05/17/24 05/16/24 08:00 History
62.5 mcg-vilant 25 mcg Lung/Breathing Issues
inhalat.powder (Trelegy Ellipta)
levothyroxine 75 mcg tablet 75 mcg PO DAILY Thyroid 01/25/24 05/17/24 05/17/24 05:00 History
(Synthroid)
acetaminophen 500 mg tablet 1,000 mg (2 x 500 mg) PO BID Pain 01/28/24 05/17/24 05/16/24 20:00 Rx
(Tylenol Extra Strength) #0 tabs
pantoprazole 40 mg tablet,delayed 40 mg PO DAILY #30 tabs 01/28/24 05/17/24 05/16/24 08:00 Rx
release (Protonix)
aspirin 81 mg tablet 81 mg PO DAILY Blood Clot 05/17/24 05/17/24 05/17/24 05:00 History
Prevention/Tx
clopidogrel 75 mg tablet (Plavix) 75 mg PO DAILY Blood Clot 05/17/24 05/17/24 05/17/24 05:00 History
Prevention/Tx
rivaroxaban 20 mg tablet (Xarelto) 20 mg PO QPM Blood Clot 05/17/24 05/17/24 05/15/24 20:00 History
Prevention/Tx
Review of Systems
Vitals / Labs / Diagnostic Testing
Vital Signs
Temp Pulse Resp BP Pulse Ox
97.7 F 75 19 126/64 95
05/17/24 12:00 05/17/24 14:00 05/17/24 14:00 05/17/24 14:00 05/17/24 14:00
Lab Data
05/17/24 09:57
05/17/24 09:57
Laboratory Results
05/17/24
09:57
PT 13.6
INR 1.01
APTT 38.2 H
Diagnostic Testing:
Physical Exam
-
HEENT: Normocephalic, Anicteric and Moist Mucous Membranes
Cardiovascular: S1/S2 and Regular Rhythm
Respiratory: Clear and Non-Labored Respirations
GI: Soft, Non Distended and Non Tender
Neurology: Awake, Alert, Oriented and No Motor Deficits
Skin: Warm, Dry and Good Color
General: Comfortable and Other (NAD)
Assessment
-
Patient is a 78-year-old female with previous history of PAD, CAD, AAA, COPD/emphysema seen here for elective vascular procedure. Has history of bilateral carotid disease with high-grade stenosis requiring bilateral intervention. She is here for
elective TCAR. Underwent procedure on 05/17/2024 without complications. Admitted to ICU for observation postoperatively.
B/l Carotid disease s/p L TCAR 05/17/24
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
Sick sinus syndrome s/p Pacemaker
COPD/Emphysema, seen by Yenny
Essential hypertension
Tobacco abuse 1PPD ongoing
Mild obstructive sleep apnea; AHI 12
Abdominal aortic aneurysm (AAA) without rupture
Mixed hyperlipidemia
Polyarthropathy
PAF
Vaginal prolapse
Peripheral artery disease
ASCVD
Renal artery stenosis
Osteopenia of neck of left femur
Cognitive changes
Acquired hypothyroidism
Plan
Patient is s/p L TCAR- by vascular surgery service, POD #0
Continue observation following procedure
Follow neurovascular checks per protocol
ASA, betablocker and statin on board
Follow BP monitoring and parameters as set by primary team
Cardiac history noted--HTN, AAA, PAD, CAD
Monitor on telemetry
Pain control per protocol
RASS goal 0
Prior history of pulmonary disease, smoking hx includes ongoing 1PPD usage
Has history of COPD/emphysema, no current complaints
Smoking cessation, NRT while inpatient
CXR reviewed indicating no acute disease
Resume home meds
Encouraged IS
Diet advancement per protocol
Aspiration precautions
GI prophylaxis if indicated for stress ulcer prevention in the critically ill
Creat at baseline, follow UO
Critical I/Os
Void trials
Replete electrolytes as needed
No signs/symptoms suspicious for infectious etiology at this time
Will observe off antibiotics for now
Follow temperatures/CBC
Hb and platelets postoperatively stable
DVT prophylaxis recommended if not contraindicated based on procedural history -- heparin SQ and mechanical SCDs
Encouraged OOB/PT/OT/ambulation once cleared by surgical team
We will follow
Diagnostic Data
Chest X-Ray: 05/13/24- No acute disease of the chest. Findings suggesting COPD. Progressed
CT Scan: H&N 03/31/24- Moderate calcific plaque in the left carotid bulb resulting in focal approximate 70% stenosis of the proximal left internal carotid artery.
Mild to moderate calcific plaque of the right carotid bulb resulting in focal approximate 50% stenosis of the proximal right internal carotid artery.
ECHO 08/15/23- Normal left ventricular size, wall thickness and systolic function. Estimated ejection fraction is 55-60%. Aortic sclerosis without stenosis. No significant change since the prior study of 2019.
PFT's:
Reports and relevant images were personally reviewed.
-----
Critical care time 50 mins -- this includes review of history, physical exam, medications, hemodynamic/ventilator parameters, laboratory data, imaging and discussion with house staff, pharmacy, respiratory therapy, nurse emergency room, and nursing.
[2024-05-17] MEDS: HEPARIN 5000 UNITS SC (16:12)
--- NOTE | 2024-05-17 16:28 | PTCARENOTE ---
Patient resting comfortably between care. Assisted to bedside commode, voided w/out issue. VSS.
[2024-05-17] MEDS: ZITHROMAX 250 MG PO (17:03)
[2024-05-17] MEDS: LIPITOR 80 MG PO (17:03)
[2024-05-17] MEDS: ProAIR HFA INHALER 2 PUFF INH (20:59)
--- NOTE | 2024-05-17 21:00 | PTCARENOTE ---
Report received from BIB May. Walking rounds done. Dr. Fitch at bedside at ~ 1900 to see pt. Pt slightly drowsy yet arouses easily to voice. Oriented to person, place, purpose, month, intermittently to year. Speech clear. Tongue midline. Equal
extremity strength x 4. No drift to BUE. No visual complaints. Keeping SBP 100-165 mm HG per MD orders. Neuro checks q 1 hr. L neck incision approximated. Bruised to site. 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 Ice pack for up to 20 minutes q 2hr prn x 24 hours.
BBS present. Moist, nonproductive cough. Some expiratory wheezes auscultated to B anterior lung sabillon. RT in to give pt an albuterol tx at 2100. Sats on 2L/NC 92-95%. Audible heart tones. Pt in SR 60-70's. Maintaining SBP 100-165 mm HG. L radial A
line present with pulsatile waveform. R groin checks. Site soft, no hematoma. Normal, +2 palpable pulse to R DP. + 1 palpable L DP pulse. BLE with cap refill < 2 sec. BLE warm, pink. +2 radial pulses present. Belly soft, nontender. Hypoactive bowel
sounds x 4. No c/o nausea, vomiting. Pt voided clear, yellow urine (100 mls) with 1 person assist to BSC. Receiving NS at 80 mls/hr. Ongoing plan of care.
[2024-05-18] VITALS (14 sets, daily range): BP systolic 93–136; BP diastolic 45–90; BMI 25.6
[2024-05-18] MEDS: HEPARIN 5000 UNITS SC ×2 (00:35→09:43)
--- NOTE | 2024-05-18 01:00 | PTCARENOTE ---
Pt oriented to name, place purpose, month. Occasionally states she is at home but easily reoriented. PA made aware. No other neuro deficits.
--- NOTE | 2024-05-18 03:58 | PTCARENOTE ---
Labs drawn and sent. Pt up to BSC to void. Pt oriented to name, place, purpose, month..intermittently to year. Speech clear, tongue midline. Equal strength x 4. Pupils 3/brisk. Remains in SR. Sats on 2L/NC 93-95%. .
[2024-05-18] MEDS: ProAIR HFA INHALER 2 PUFF INH (04:01)
[2024-05-18 04:21] LABS: Hematocrit 35.9 % (37.0-47.0); Hemoglobin 11.4 g/dL (12.0-16.0); Mean Corp Hgb Conc. 31.8 g/dL (33.0-37.0); Mean Corpuscular Hgb 30.6 pg (27.0-31.0); Mean Corpuscular Volume 96.5 fL (81.0-99.0); Mean Platelet Volume 10.5 fL (7.4-10.4); Platelet Count 133 10^3/uL (130-400); Red Blood Cell Count 3.72 10^6/uL (4.20-5.40); Red Cell Dist. Width 14.1 % (11.5-14.5); White Blood Cell Count 5.9 10^3/uL (4.8-10.8)
[2024-05-18 04:26] LABS: INR 0.95
[2024-05-18 04:27] LABS: APTT 34.6 Sec (23.4-35.0)
[2024-05-18 04:41] LABS: Blood Urea Nitrogen 16 mg/dl (7-17); Calcium 8.3 mg/dl (8.4-10.2); Carbon Dioxide 30 mmol/L (22-30); Chloride 101 mmol/L (98-107); Estimated Creatinine Clearance 55 ml/min; Glucose 115 mg/dl (70-99); Potassium 4.5 mmol/L (3.5-5.1); Sodium 136 mmol/L (135-145); eGFR > 60.00
[2024-05-18] MEDS: SYNTHROID 75 MCG PO (06:00)
[2024-05-18] MEDS: TYLENOL 650 MG PO ×2 (06:00→11:59)
--- NOTE | 2024-05-18 07:05 | PTCARENOTE ---
Report to BIB May. Walking rounds done. Neuro check done. Oriented to person, place, purpose, month. Intermittently to year. Speech clear. Equal extremity strength x 4. Ed, PA also in to assess pt this am. Daughter at bedside. Tylenol 650 mg po
given at 0600.
--- NOTE | 2024-05-18 07:13 | W.PN.INTV ---
Today's Communication / Plan
Recommendations
Doing well, stable on RA, no events
No new complaints, stable on home COPD meds
Encouraged OOB, IS, ambulation
Discharge planning per team today
Assessment
-
Patient is a 78-year-old female with previous history of PAD, CAD, AAA, COPD/emphysema seen here for elective vascular procedure. Has history of bilateral carotid disease with high-grade stenosis requiring bilateral intervention. She is here for
elective TCAR. Underwent procedure on 05/17/2024 without complications. Admitted to ICU for observation postoperatively.
B/l Carotid disease s/p L TCAR 05/17/24
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
Sick sinus syndrome s/p Pacemaker
COPD/Emphysema, seen by Yenny
Essential hypertension
Tobacco abuse 1PPD ongoing
Mild obstructive sleep apnea; AHI 12
Abdominal aortic aneurysm (AAA) without rupture
Mixed hyperlipidemia
Polyarthropathy
PAF
Vaginal prolapse
Peripheral artery disease
ASCVD
Renal artery stenosis
Osteopenia of neck of left femur
Cognitive changes
Acquired hypothyroidism
Plan
Patient is s/p L TCAR- by vascular surgery service, POD #1
Continue observation following procedure
Follow neurovascular checks per protocol
ASA, betablocker and statin on board
Follow BP monitoring and parameters as set by primary team
Cardiac history noted--HTN, AAA, PAD, CAD
Monitor on telemetry
Pain control per protocol
RASS goal 0
Prior history of pulmonary disease, smoking hx includes ongoing 1PPD usage
Has history of COPD/emphysema, no current complaints
Smoking cessation, NRT while inpatient
CXR reviewed indicating no acute disease
Resume home meds
Encouraged IS
Diet advancement per protocol
Aspiration precautions
GI prophylaxis if indicated for stress ulcer prevention in the critically ill
Creat at baseline, follow UO
Critical I/Os
Void trials
Replete electrolytes as needed
No signs/symptoms suspicious for infectious etiology at this time
Will observe off antibiotics for now
Follow temperatures/CBC
Hb and platelets postoperatively stable
DVT prophylaxis recommended if not contraindicated based on procedural history -- heparin SQ and mechanical SCDs
Encouraged OOB/PT/OT/ambulation once cleared by surgical team
Discharge planning per team
Diagnostic Data
Chest X-Ray: 05/13/24- No acute disease of the chest. Findings suggesting COPD. Progressed
CT Scan: H&N 03/31/24- Moderate calcific plaque in the left carotid bulb resulting in focal approximate 70% stenosis of the proximal left internal carotid artery.
Mild to moderate calcific plaque of the right carotid bulb resulting in focal approximate 50% stenosis of the proximal right internal carotid artery.
ECHO 08/15/23- Normal left ventricular size, wall thickness and systolic function. Estimated ejection fraction is 55-60%. Aortic sclerosis without stenosis. No significant change since the prior study of 2019.
PFT's:
Reports and relevant images were personally reviewed.
-----
Critical care time 31 mins -- this includes review of history, physical exam, medications, hemodynamic/ventilator parameters, laboratory data, imaging and discussion with house staff, pharmacy, respiratory therapy, buckle sewer machine, and nursing.
Subjective Dataa
Subjective Data
Date of Service:
Date of Service: May 18, 2024
Chief Complaint: Chief Medical Director Follow Up
Subjective:
Doing well, no complaints, remains stable on RA
No events noted overnight
Objective Data
Data Reviewed
Vital Signs / I&O / Oxygen:
Vital Signs
Temp Pulse Resp BP Pulse Ox
98.2 F 73 15 118/67 94
05/18/24 03:00 05/18/24 07:00 05/18/24 07:00 05/18/24 07:00 05/18/24 07:00
Intake and Output
05/17/24 05/18/24 05/19/24
06:59 06:59 06:59
Intake Total 2293 / 2293
Output Total 700 / 700
Balance 1593 / 1593
SaO2 94
Nasal Cannula flow liters per 2
minute
Physical Exam
General: Comfortable and Other (NAD)
HEENT: Normocephalic, Anicteric and Moist Mucous Membranes
Cardiovascular: S1-S2 and Regular Rhythm
Respiratory: Clear and Non-Labored Respirations
GI: Soft, Non Distended and Non Tender
Neurology: Awake, Alert, Oriented and No Motor Deficits
Skin: Warm, Dry and Good Color
Labs/Micro/Reports
Lab Data
05/18/24 03:57
05/18/24 03:57
Laboratory Results
05/17/24 05/18/24
09:57 03:57
PT 13.6 13.0
INR 1.01 0.95
APTT 38.2 H 34.6
--- NOTE | 2024-05-18 08:15 | W.PN.VS ---
Addendum entered and electronically signed by Krishna Mercado III, MD 05/18/24 13:39:
This patient was seen and examined with PHUONG Knowles and PHUONG Mejia. I agree with the history and physical exam as well as the assessment and plan.
Signed:
Krishna Mercado III, MD
[facility]
[phone] ([id number])
Addendum entered and electronically signed by PHUONG Mejia 05/18/24 11:50:
Patient noted to have a decrease in pulse ox to roughly 86 with activities on room air, reviewed with electrical controls assembler and book coverer Dr. Nolasco who agreed patient is stable for discharge following home oxygenation assessment and establishment of home
O2 if required. Patient is asymptomatic with decrease in pulse ox reading, and has baseline advanced COPD.
Original Note:
Today's Communication / Plan
-
Discussed with Dr. Mercado
Assessment/Plan
-
POD 1 left TCAR
Plan:
-DC A-line
-DC IV fluids
-Out of bed/ambulate
-Increase diet
-P.o. medications
-Likely DC later today
Subjective Data
-
Date of Service: May 18, 2024
Patient seen at bedside this a.m. Patient offers no complaints at this time. No events overnight. Resting comfortably in bed.
Objective Data
-
Vital Signs
Temp Pulse Resp BP Pulse Ox
98.2 F 73 15 118/67 94
05/18/24 03:00 05/18/24 07:00 05/18/24 07:00 05/18/24 07:00 05/18/24 07:00
Intake and Output
05/17/24 05/18/24 05/19/24
06:59 06:59 06:59
Intake Total 2293 / 2293
Output Total /
Balance 1592
Intake:
Oral fluids 400 / 400
IV fluids (Total) 1892
NSS 1892
Output:
Urine, Voided /
Other:
Number of approximated LARGE 1
amounts of urine
How many times incontinent 1
MODERATE amount urine
Lab Results
05/18/24 03:57
05/18/24 03:57
Calcium 8.3 mg/dl (8.4-10.2) L 05/18/24 03:57
Physical Exam
-
AAOx3
No tachypnea
No tachycardia
Neck site clean, dry, intact, soft, flat, mild ecchymosis
Groin site clean, dry, intact, flat, soft
Moves all extremities equally
Tongue midline
[2024-05-18] MEDS: SPIRIVA RESPIMAT 2.5 MCG 2 PUFF INH (09:06)
[2024-05-18] MEDS: SYMBICORT 80/4.5 MCG INHALER 2 PUFF INH (09:07)
--- NOTE | 2024-05-18 09:20 | PTCARENOTE ---
Patient received from shear operator helper resting in bed, sleepy but arousable and appropriate. Neuro checks wnl, see work list. NSR via cm, SaO2 @ 95% on 2lnc. L neck incision cdi, ecchymotic but soft. R groin site cdi, no ecchymosis or hematoma noted,
distal pulse palpable. Arterial line present, d/c'd as ordered. Assisted oob to bathroom, voided, am care performed independently. Settled to chair for breakfast. Patient and daughter at bedside, updated to plan of care for the day, in agreement.
See work list for full assessment and interventions performed.
[2024-05-18] MEDS: PROTONIX 40 MG PO (09:42)
[2024-05-18] MEDS: NORVASC 5 MG PO (09:43)
[2024-05-18] MEDS: TOPROL XL 25 MG PO (09:43)
[2024-05-18] MEDS: PLAVIX 75 MG PO (09:43)
[2024-05-18] MEDS: ASPIR LOW (ENTERIC COATED) 81 MG PO (09:43)
--- NOTE | 2024-05-18 10:25 | CM ---
Addendum entered by Damari Tamayo 05/18/24 13:10:
Portable 02 delivered for patient to take home. She is to call to set up deliver for the home concentrator delivery.
Addendum entered by Damari Tamayo 05/18/24 12:46:
Reviewed chart. Received consult for home 02. Telephone call to [facility] to make the referral for Home 02. Sent the referral to [facility]. Met with Mrs. dwyer and her daughter to review home 02.
Original Note:
Reviewed chart. Met with Mrs. Sharma and her daughter to review discharge plans. She states she feel good and maybe able to go home soon. Prior to admission she resides with her daughter and granddaughter in a one story home with one step to enter.
Prior to admission she was independent with ambulation and adls. She has a CPAP Machine at home but currently not using it. She has a prescription plan and uses [facility]. Medical work-up in progress. The discharge plan is to return home
with her daughter and grandson when medically stable.
--- NOTE | 2024-05-18 11:53 | W.DS.TRANS ---
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
-
Discharge Instructions:
Discharge Diagnosis/Procedures Left transcarotid artery revascularization
Diet As tolerated
Activity No strenuous activity
Driving Restrictions Not until seen by your Dr
Bathing Restrictions OK to Shower
Instructions:
Stand-Alone Forms: DC Instr - Vascular OR
Changes to Home Medications: No
Discharge Medications:
DC Medications w/original date entered in [facility]
amlodipine 2.5 mg tablet 5 mg PO DAILY Blood Pressure 01/05/19
azithromycin 250 mg tablet 250 mg PO DAILY Infection 01/05/19
albuterol sulfate 90 mcg/actuation aerosol inhaler 2 puff inhalation R Q6HPRN PRN SOB, Wheezes 09/23/22
atorvastatin 80 mg tablet 80 mg PO QPM High Cholesterol 09/23/22
metoprolol succinate 25 mg tablet,extended release 24 hr 25 mg PO DAILY Heart Disease/Condition 09/23/22
fluticasone fur. 100 mcg-umeclid 62.5 mcg-vilant 25 mcg inhalat.powder (Trelegy Ellipta) 1 inh inhalation R DAILY Lung/Breathing Issues 01/25/24
levothyroxine 75 mcg tablet (Synthroid) 75 mcg PO DAILY Thyroid 01/25/24
acetaminophen 500 mg tablet (Tylenol Extra Strength) 1,000 mg (2 x 500 mg) PO BID Pain #0 tabs 01/28/24
pantoprazole 40 mg tablet,delayed release (Protonix) 40 mg PO DAILY #30 tabs 01/28/24
aspirin 81 mg tablet 81 mg PO DAILY Blood Clot Prevention/Tx 05/17/24
clopidogrel 75 mg tablet (Plavix) 75 mg PO DAILY Blood Clot Prevention/Tx 05/17/24
rivaroxaban 20 mg tablet (Xarelto) 20 mg PO QPM Blood Clot Prevention/Tx 05/17/24
Home Medication Changes
Pending Results: No
--- NOTE | 2024-05-18 14:51 | PTCARENOTE ---
Discharge instructions thoroughly reviewed w/patient and daughter, all questions answered. Medications clarified w/PHUONG Edwards. PIV x 2 removed. Patient and all belongings transported to waiting vehicle for d/c home.
== END 2024-05-18 15:00 | disposition home or self-care (01) | DRG 36 ==
LOC: CVICU 06:18
PROVIDERS: Nurse Practitioner Acute Care; ADMITTING PHYSICIAN Surgery Vascular Surgery; CONSULT PHYSICIAN Internal Medicine; FAMILY PHYSICIAN Registered Nurse
PROC: 037L3DZ Dilation of Left Internal Carotid Artery with Intraluminal Device, Percutaneous Approach (ICD-10-PCS; 2024-05-17)
DX: I65.22 Occlusion and stenosis of left carotid artery (principal); I25.10 Atherosclerotic heart disease of native coronary artery without angina pectoris; J43.9 Emphysema, unspecified; I73.9 Peripheral vascular disease, unspecified; I71.40 Abdominal aortic aneurysm, without rupture, unspecified; I10 Essential (primary) hypertension; G47.33 Obstructive sleep apnea (adult) (pediatric); E78.2 Mixed hyperlipidemia; I48.0 Paroxysmal atrial fibrillation; I70.1 Atherosclerosis of renal artery; M85.852 Other specified disorders of bone density and structure, left thigh; E03.9 Hypothyroidism, unspecified; F17.200 Nicotine dependence, unspecified, uncomplicated; M13.0 Polyarthritis, unspecified; Z79.01 Long term (current) use of anticoagulants; Z79.02 Long term (current) use of antithrombotics/antiplatelets; Z79.82 Long term (current) use of aspirin; Z79.899 Other long term (current) drug therapy; Z95.0 Presence of cardiac pacemaker
CPT/HCPCS: 36415; 37215; 71046; 80048; 85025; 85027; 85610; 85730; 86850; 86900; 86901; 94640; 95938; 95941; 95955; C1725; C1769; C1876; C1884; C1894; Q9967

== ENCOUNTER → 2024-06-25 15:16 | Outpatient (REF) | payer OTHER, SELFPAY | LOC: DHVS 15:16 | PROVIDERS: ATTENDING PHYSICIAN Physician Assistant | DX: I65.23 Occlusion and stenosis of bilateral carotid arteries (principal) | CPT/HCPCS: 93880 ==

== ENCOUNTER → 2024-08-23 13:37 | Outpatient (REF) | payer OTHER, SELFPAY ==
[2024-08-23 16:04] LABS: ALT (SGPT) 17 U/L (0-35); AST (SGOT) 27 U/L (14-36); Albumin 4.7 g/dl (3.5-5.0); Alkaline Phosphatase 90 U/L (38-126); Blood Urea Nitrogen 19 mg/dl (7-17); Calcium 9.8 mg/dl (8.4-10.2); Carbon Dioxide 33 mmol/L (22-30); Chloride 100 mmol/L (98-107); Glucose 95 mg/dl (70-99); Potassium 4.6 mmol/L (3.5-5.1); Sodium 142 mmol/L (135-145); Total Bilirubin 0.6 mg/dl (0.2-1.3); Total Protein 7.3 g/dl (6.3-8.2); eGFR > 60.00
== END ==
LOC: REG 13:37
PROVIDERS: ATTENDING PHYSICIAN Internal Medicine Cardiovascular Disease
DX: R07.9 Chest pain, unspecified (principal)
CPT/HCPCS: 36415; 80053

== ENCOUNTER → 2024-08-26 10:04 | Outpatient (REF) | payer OTHER, SELFPAY | LOC: RAD 10:04 | PROVIDERS: ATTENDING PHYSICIAN Internal Medicine Cardiovascular Disease; FAMILY PHYSICIAN Registered Nurse | DX: R07.9 Chest pain, unspecified (principal); I48.0 Paroxysmal atrial fibrillation; I10 Essential (primary) hypertension | CPT/HCPCS: 75574; Q9967 ==

== ENCOUNTER → 2024-09-08 13:49 | Outpatient (REF) | payer OTHER, SELFPAY | LOC: HWRCS 13:49 | PROVIDERS: ATTENDING PHYSICIAN Internal Medicine Cardiovascular Disease; FAMILY PHYSICIAN Registered Nurse | DX: I48.0 Paroxysmal atrial fibrillation (principal); R07.9 Chest pain, unspecified; I10 Essential (primary) hypertension | CPT/HCPCS: 93306 ==

== ENCOUNTER 2024-09-28 10:11 | Day surgery (SDC) | payer OTHER, SELFPAY ==
[2024-09-20 10:06] LABS: % Basophils 0.2 % (0-2); % Eosinophils 0.5 % (0-6); % Immature Granulocytes 0.3 % (0-0.5); % Lymphocytes 24.3 % (20.5-51.1); % Neutrophils 64.7 % (42.2-75.2); ALT (SGPT) 18 U/L (0-35); AST (SGOT) 25 U/L (14-36); Absolute Lymphocytes 1.4 10^3/uL (1.2-3.4); Absolute Monocytes 0.6 10^3/uL (0.1-0.6); Absolute Neutrophils 3.8 10^3/uL (1.4-6.5); Albumin 4.4 g/dl (3.5-5.0); Alkaline Phosphatase 99 U/L (38-126); Blood Urea Nitrogen 18 mg/dl (7-17); Calcium 9.6 mg/dl (8.4-10.2); Carbon Dioxide 36 mmol/L (22-30); Chloride 97 mmol/L (98-107); Glucose 100 mg/dl (70-99); Hematocrit 39.9 % (37.0-47.0); Hemoglobin 13.2 g/dL (12.0-16.0); Mean Corp Hgb Conc. 33.1 g/dL (33.0-37.0); Mean Corpuscular Hgb 30.7 pg (27.0-31.0); Mean Corpuscular Volume 92.8 fL (81.0-99.0); Mean Platelet Volume 11.2 fL (7.4-10.4); Nucleated Red Blood Cells % 0 %; Platelet Count 130 10^3/uL (130-400); Potassium 4.7 mmol/L (3.5-5.1); Red Cell Dist. Width 13.8 % (11.5-14.5); Sodium 141 mmol/L (135-145); Total Bilirubin 0.6 mg/dl (0.2-1.3); Total Protein 6.7 g/dl (6.3-8.2); White Blood Cell Count 5.8 10^3/uL (4.8-10.8); eGFR > 60.00
[2024-09-20 12:09] VITALS: BMI 22.8
[2024-09-28] VITALS (13 sets, daily range): BP systolic 132–158; BP diastolic 62–95
[2024-09-28] MEDS: LOW STRENGTH ASPIRIN 324 MG PO (13:22)
[2024-09-28] MEDS: NSS 1000 IV (15:48)
--- NOTE | 2024-09-28 21:13 | ITS.CL.PN ---
Sql Ssrs Developer - Procedure Note
Procedure
Procedure Note:
CARDIAC CATHETERIZATION REPORT
Date of Procedure: 09/28/2024
Referring: Dr. Mony Pina MD
Indication: chest pain, concern for triple-vessel coronary artery disease on CT angiogram
PROCEDURE(S)
1. left heart catheterization
2. coronary angiography
ACCESS: 6F right radial artery (closure: radial band)
CATHETERS
1. 6F JR4
2. 6F JL3.5
MODERATE SEDATION: 30 minutes of moderate sedation was utilized. An independent medical dosimetrist was present to assist with and help manage the patient's level of consciousness and physiologic status.
HEMODYNAMIC DATA
LV 143/6 (EDP 13) mmHg
AO 143/70 (mean 102) mmHg
CORONARY ANGIOGRAPHY
Dominance: Right
LM: Short without significant disease
LAD: Large vessel giving rise to a moderate caliber diagonal branch and wrapping around the apex.
LCx: Large vessel giving rise to a moderate caliber OM1, small OM2, and large OM3. There is a focal 50% ostial stenosis best seen in caudal projections, a 30% mid vessel stenosis, and otherwise diffuse mild disease.
RCA: Large caliber vessel giving rise to a moderate caliber RPDA and several small RPL branches. There is a 50% ostial stenosis with mild pressure dampening. There is otherwise diffuse mild disease.
RADIATION: dose 166 mGy; DAP 9.8 Gy*cm2; fluoroscopy time 3.7 min
CONCLUSIONS
1. Moderate two vessel coronary artery disease in a right dominant system with 50% ostial RCA stenosis and 50% ostial LAD stenosis.
2. Normal LV filling pressure and no aortic stenosis
RECOMMENDATION:
1. Aggressive secondary prevention of coronary artery disease
2. Fortunately, she does not have severe triple-vessel disease or left main disease as suggested by her CT angiogram. Given the moderate nature of her coronary artery disease and atypical symptoms, it is not clear to me that she has symptomatic CAD
or an indication for revascularization. Recommend medical management of two-vessel CAD. Should she have concern for angina in the future, would be reasonable to repeat non-invasive testing (SPECT/PET) first to localize ischemia to RCA vs. LAD, or
bring her back to the lab for iFR of both vessels.
Copy to: Dr. Mony Pina MD (ring sorter); Daljit Mendieta NP (PCP)
Signed: Cordell Damico MD, PhD
== END 2024-09-28 18:00 | disposition home or self-care (01) ==
LOC: CATH 10:11
PROVIDERS: ATTENDING PHYSICIAN Student in an Organized Health Care Education/Training Program; FAMILY PHYSICIAN Registered Nurse; OTHER PHYSICIAN Internal Medicine Cardiovascular Disease
DX: R07.9 Chest pain, unspecified (principal); I25.10 Atherosclerotic heart disease of native coronary artery without angina pectoris; I10 Essential (primary) hypertension; E78.5 Hyperlipidemia, unspecified; I49.5 Sick sinus syndrome; Z79.01 Long term (current) use of anticoagulants; Z79.899 Other long term (current) drug therapy; J44.9 Chronic obstructive pulmonary disease, unspecified; I71.40 Abdominal aortic aneurysm, without rupture, unspecified
CPT/HCPCS: 99152; 99153; 36415; 80053; 85025; 93458; C1894; Q9967

== ENCOUNTER → 2025-01-26 06:28 | Outpatient (REF) | payer OTHER, SELFPAY ==
[2025-01-26 08:38] LABS: Vitamin D, 25-OH*** < 12.8 ng/mL (30-80)
[2025-01-26 09:10] LABS: Vitamin B12 239 pg/ml (239-931)
[2025-01-26 09:31] LABS: HDL Cholesterol 44 mg/dl; LDL Cholesterol, Calculated 84 mg/dl; Very Low Density Lipoprotein 15 mg/dl (0-30)
== END ==
LOC: RAD 06:28
PROVIDERS: ATTENDING PHYSICIAN Surgery Vascular Surgery; FAMILY PHYSICIAN Registered Nurse
DX: I65.23 Occlusion and stenosis of bilateral carotid arteries (principal)
CPT/HCPCS: 36415; 80061; 82306; 82607; 84443; 93880